=== PATIENT | female | born 1995 | race Caucasian/White ===

== ENCOUNTER 2018-01-18 23:42 | Emergency (ER) | payer SELFPAY ==
[2018-01-18 23:48] VITALS: BP 139/90; PULSE 89; RESP 18; TEMP 37; O2SAT 98
--- NOTE | 2018-01-18 23:58 | ED.GENADUL ---
Disposition Clinical Impression: Gastritis Disposition: HOME Condition: Good Instructions: Gastritis (ED) Additional Instructions: Please follow-up with primary care for recheck in the next 7-10 days time. Avoid fatty, fried, spicy or tomato sauce based foods. Avoid eating 3 hours prior to bedtime. He may benefit from sleeping with the head of the bed elevated 2-3 pillows. Take medication as prescribed. Return if you develop fever, worsening pain, or any other acute concerns. Prescriptions: Pantoprazole [Protonix] 40 mg PO DAILY #30 tabcr Medical Decision Making - Lab Data Laboratory Results - last 24 hr 01/19/18 01/19/18 01/19/18 00:09 00:09 00:20 WBC 11.33 H RBC 4.01 Hgb 12.9 Hct 36.9 MCV 92.0 MCH 32.2 MCHC 35.0 RDW 11.3 L Plt Count 322 MPV 10.8 Immature Gran % 0.2 Neutrophils % 58.2 Lymphocytes % 33.0 Monocytes % 5.6 Eosinophils % 2.7 Basophils % 0.3 Absolute Neutrophils 6.59 Absolute Lymphocytes 3.74 H Absolute Monocytes 0.63 Absolute Eosinophils 0.31 Absolute Basophils 0.03 Sodium 140 Potassium 3.5 Chloride 104 Carbon Dioxide 27.2 Anion Gap 8.8 BUN 13 Creatinine 0.68 Estimated GFR/1.73 m2 >= 60.00 Glucose 95 Calcium 8.4 L Magnesium 1.8 Total Bilirubin 0.2 AST 16 ALT 25 Alkaline Phosphatase 51 Total Protein 7.2 Albumin 3.7 Lipase 174 Urine Color Yellow Urine Clarity Clear Urine pH 7.0 Ur Specific [place] 1.020 Urine Protein Negative Urine Ketones Negative Urine Blood Trace-lysed H Urine Nitrite Negative Urine Bilirubin Negative Urine Urobilinogen 1.0 H Ur Leukocyte Esterase Negative Urine RBC 3-5 H Urine WBC 0-2 Ur Epithelial Cells Few Urine Crystals Negative Urine Bacteria Rare Urine Casts Negative Urine Mucus Negative Urine Other Rare transitional Ur Culture Indicated? No Urine Glucose Negative Results reviewed for labs ordered during visit: Yes - Medical Decision Making 22-year-old female presents with stuttering episodes of epigastric pain worsened tonight after eating hors d'oeuvres at a wedding. She is afebrile, well-appearing, minimally tender in epigastrium. Differential diagnosis would include gastritis, duodenal ulcer, esophagitis. Patient given GI cocktail, PPI, referred for laboratory testing. White blood cell count 11, hematocrit 36, platelets 322. Chemistries revealed normal electrolytes, unremarkable LFTs, normal lipase. Urinalysis essentially negative. Patient improved following PPI and GI cocktail. I do feel this is most consistent with gastritis. Discussed lifestyle changes with her and will place her on 30 days of PPI by prescription. She will follow-up with primary care for recheck. History of Present Illness - General Chief complaint: Chest/Rib Stated complaint: NAUSEA/CHEST TINGLING/SOB Time Seen by Provider: 01/18/18 23:45 Source: patient, family, RN notes reviewed Mode of arrival: ambulatory Limitations: no limitations - History of Present Illness Initial comments: Epigastric pain: 22-year-old female presents for the abrupt onset of burning epigastric pain that radiates up and down her chest. It began earlier this evening after eating hors d'oeuvres at a wedding. States that similar, intermittent episodes over weeks time that improved with Zantac. They primarily occur at night as well as in the morning. Tonight she felt flushed, sweaty, nauseated without associated emesis. It improved after sitting down. She states that she has not recently been ill and denies a fever, vaginal discharge or bleeding - Related Data Acetaminophen [Tylenol] 325 mg PO DIRECTED PRN 02/06/17 Ibuprofen 800 mg PO DIRECTED PRN 02/06/17 Norgestimate-Ethinyl Estradiol [Sprintec] 1 tab-cap PO DAILY 84 Days #3 pack 11/28/17 Pantoprazole [Protonix] 40 mg PO DAILY #30 tabcr 01/19/18 Allergies Allergy/AdvReac Type Severity Reaction Status Date / Time No Known Allergies Allergy Unverified 01/18/18 23:47 Review of Systems Other: 8 systems reviewed, otherwise negative Past Medical History - Past Medical History Medical history: asthma Surgical history: no surgical history - Social History Alcohol use: occasionally Drug use: none General Exam - General Limitations: no limitations General appearance: alert, in no apparent distress - Head Head exam: Present: atraumatic, normocephalic - ENT ENT exam: Present: normal exam - Neck Neck exam: Present: normal inspection, full ROM - Respiratory Respiratory exam: Present: normal lung sounds bilaterally. Absent: respiratory distress - Cardiovascular Cardiovascular Exam: Present: regular rate, normal rhythm - GI/Abdominal GI/Abdominal exam: Present: soft, tenderness, other (Epigastric tenderness without rebound or guarding). Absent: distended - Extremities Exam Extremities exam: Present: normal inspection, full ROM. Absent: pedal edema, calf tenderness - Neurological Exam Neurological exam: Present: alert, oriented X3 - Psychiatric Psychiatric exam: Present: normal affect, normal mood - Skin Skin exam: Present: warm, dry, intact Course Vital Signs - 24 hr 01/18/18 23:48 Temperature 37.0 C Pulse 89 Respiratory 18 Rate Blood Pressure 139/90 Pulse Oximetry 98
[2018-01-19] MEDS: Ondansetron 4 MG/2 ML VIAL IVP (00:13)
[2018-01-19] MEDS: Normal Saline 1,000 ML 1000 ML IV (00:15)
[2018-01-19] MEDS: Pantoprazole 40 MG VIAL IVP (00:15)
[2018-01-19 00:16] LABS: Abs Immature Grans 0.02 k/cumm (0.0-0.09); Absolute Basophil Count 0.03 k/cumm (0.0-0.2); Absolute Eosinophil Count 0.31 k/cumm (0.0-0.7); Absolute Lymphocyte Count 3.74 k/cumm (1.2-3.4); Absolute Monocyte Count 0.63 k/cumm (0.11-0.7); Basophils % 0.3; Eosinophils % 2.7; HCT 36.9 % (36.0-46.0); HGB 12.9 g/dL (12.0-15.5); Immature Grans % 0.2; Mean Corpuscular Hemoglobin 32.2 pg (27.0-33.0); Mean Platelet Volume 10.8 fL (8.0-11.0); Monocytes % 5.6; Neutrophils % 58.2; Platelet Count 322 x1000/uL (130-400); RBC 4.01 m/cumm (4.00-5.20); RBC Distribution Width 11.3 % (11.7-14.6); White Blood Cell Count 11.33 k/cumm (4.4-10.8)
[2018-01-19 00:19] LABS: Absolute Neutrophil Count 6.59 k/cumm (1.2-6.7)
[2018-01-19 00:31] LABS: Bilirubin Negative (Negative); Blood Trace-lysed (Negative); Clarity Clear; Glucose Negative (Negative); Ketones Negative (Negative); Leukocyte Esterase Negative (Negative); Nitrite Negative (Negative)
[2018-01-19 00:32] LABS: ALT 25 U/L (12-78); AST 16 U/L (15-37); Albumin 3.7 g/dL (3.4-5.0); Alkaline Phosphatase 51 U/L (46-116); Anion Gap 8.8 mmol/L (3-11); BUN 13 mg/dL (7-18); Bilirubin, Total 0.2 mg/dL (0.2-1.0); CO2 27.2 mmol/L (21.0-32.0); CREATININE 0.68 mg/dL (0.55-1.02); Calcium 8.4 mg/dL (8.5-10.1); Chloride 104 mmol/L (98-107); Glucose 95 mg/dL (70-100); Lipase 174 U/L (73-393); Magnesium 1.8 mg/dL (1.8-2.4); Potassium 3.5 mmol/L (3.5-5.1); Sodium 140 mmol/L (136-145); Total Protein 7.2 g/dL (6.4-8.2)
[2018-01-19 00:45] LABS: Bacteria Rare HPF (Negative); C & S Indicated? No; Casts Negative LPF (Negative); Crystals Negative HPF (Negative); Epithelial Cells Few HPF (Negative); Mucus Negative (Negative); Other Cells Rare Transitional (Negative); WBC 0-2 HPF (0-5)
--- NOTE | 2018-01-20 09:40 | PDOC.ERCMPRO ---
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 Referral faxed to [facility] this am.
--- NOTE | 2018-01-20 09:41 | CMPROGNOTE_ITS ---
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 Referral faxed to [facility] this am.
== END 2018-01-19 00:56 | disposition home or self-care (01) ==
PROVIDERS: Emergency Provider Emergency Medicine
DX: K52.9 Noninfective gastroenteritis and colitis, unspecified (principal)
CPT/HCPCS: 36415; 80053; 83690; 96361; 96374; 96375; 99284; 81003; 81015; 83735; 85025; J2405

== ENCOUNTER 2018-04-23 10:25 | Emergency (ER) | payer SELFPAY ==
[2018-04-23 10:40] VITALS: BP 120/75; PULSE 80; RESP 16; TEMP 36.6; O2SAT 99
--- NOTE | 2018-04-23 11:42 | W.ED.GENAD ---
Discharge Plan Disposition Patient Disposition: HOME Condition: Good Discharge Details Chief Complaint: RashLesion Clinical Impression: Allergic reaction, Urticaria Primary Care Provider: None,None ED Provider: Markos Cortes Home Meds and New Rx's Prescriptions: New ranitidine HCl [Zantac] 150 mg tablet 150 mg PO BID Qty: 20 RF: 0 prednisone 20 mg tablet 40 mg PO DAILY Qty: 14 RF: 0 No Action norgestimate-ethinyl estradiol [Sprintec (28)] 1 EACH tablet 1 tab-cap PO DAILY 84 Days Qty: 3 RF: 2 acetaminophen [Tylenol] 325 MG tablet 325 mg PO DIRECTED PRNRF: 0 ibuprofen 200 MG tablet 800 mg PO DIRECTED PRNRF: 0 pantoprazole 40 MG tablet,delayed release (DR/EC) 40 mg PO DAILY Qty: 30 RF: 0 Discharge Instructions Instructions: Urticaria (ED), General Allergic Reaction (ED) Referrals: [facility] Emergency Dept[facility] [Outside] - Return if symptoms worsen Discharge Data Discharge Date/Time-TO BE ENTERED AT DEPARTURE: 04/23/18 13:20 Medical Decision Making Will start IV and administer fluids, benadryl, zantac, and start prednisone for system allergic reaction. Patient improving with medications. Advised no more dayquil. Prescribed prednisone and zantac. Advised to return if symptoms worsen otherwise with pcp as previously planned. HPI General Date/Time Provider Initiated Documentation: 04/23/18 10:58. Limitations to Documentation: no limitations. Information obtained by: patient. History of Present Illness 22 year old F presents to the emergency department with the chief complaint of urticaria, described as mild, HPI Narrative: 22 y/o female here with concerns of allergic reaction. She developed hives last evening after coming home from work. She took Benadryl. Today they are less red but all over her body. Denies any scratchy throat, cp or SOB. She does have some mild nausea with it and the hives itch. She did take dayquil yesterday but has taken that many times before without adverse side affects. Related Data Home Medications Medication Instructions Recorded Confirmed acetaminophen [Tylenol] 325 mg PO DIRECTED PRN 02/06/17 04/23/18 ibuprofen 800 mg PO DIRECTED PRN 02/06/17 04/23/18 norgestimate-ethinyl estradiol 1 tab-cap PO DAILY 84 Days #3 pack 11/28/17 04/23/18 [Sprintec (28)] pantoprazole 40 mg PO DAILY #30 tabcr 01/19/18 04/23/18 prednisone 40 mg PO DAILY #14 tab 04/23/18 ranitidine HCl [Zantac] 150 mg PO BID #20 tab 04/23/18 Previous Rx's Medication Instructions Recorded norgestimate-ethinyl estradiol 1 tab-cap PO DAILY 84 Days #3 pack 11/28/17 [Sprintec (28)] pantoprazole 40 mg PO DAILY #30 tabcr 01/19/18 prednisone 40 mg PO DAILY #14 tab 04/23/18 ranitidine HCl [Zantac] 150 mg PO BID #20 tab 04/23/18 Allergies Allergy/AdvReac Type Severity Reaction Status Date / Time shell fish Allergy Intermediate Hives Uncoded 04/23/18 10:45 General Stated Complaint: RashLesion BRIAN: 3 Review of Systems Eyes Reports system reviewed and no additional complaints, except as docu ENT Reports system reviewed and no additional complaints, except as docu Cardiovascular Reports system reviewed and no additional complaints, except as docu Respiratory Reports system reviewed and no additional complaints, except as docu Gastrointestinal Reports system reviewed and no additional complaints, except as docu Integumentary/Breasts Reports pruritus (hives) [facility] Medical History Asthma Social History Smoking/Tobacco Use Status: Never Exam Const General: cooperative, healthy appearing, comfortable and no acute distress Orientation: alert and awake HENMT Head: normal to inspection and atraumatic Ears: hearing grossly normal bilaterally, external ears normal and TM's normal bilaterally General nose exam: external nose normal, nares normal and nasal mucous membranes and turbinates normal Face and sinus: normal facial exam Mouth: oral mucosae normal Teeth and gingiva: dentition normal Throat: posterior oropharynx normal Eyes General: appearance normal, both eyes and all related structures Neck Neck: normal visual inspection, full ROM and no lymphadenopathy Resp Effort & Inspection: normal respiratory effort Auscultation: clear to auscultation bilaterally Cardio Rate: regular rate Rhythm: regular rhythm GI Inspection: other (hives) Palpation: soft and nontender Auscultation: normal bowel sounds Back/Spine/Pelvis Back: No back tenderness Skin General skin exam: other (urticaria hives covering trunck, abdomen, and legs. ) Neuro General: alert, awake and oriented x3 Extrem General: full ROM Psych Appearance: grossly normal Speech and Movement: speech and movement normal Mood: congruent mood Attitude: cooperative Course Vital Signs Temperature 36.6 C 04/23/18 10:40 Pulse 80 04/23/18 10:40 Respiratory Rate 16 04/23/18 10:40 Blood Pressure 120/75 04/23/18 10:40 Pulse Oximetry 99 04/23/18 10:40 Temperature 36.6 C 04/23/18 10:40 Temperature Source Skin 04/23/18 10:40 Pulse 80 04/23/18 10:40 Respiratory Rate 16 04/23/18 10:40 Respiratory Effort 04/23/18 10:40 Blood Pressure 120/75 04/23/18 10:40 Blood Pressure Position Sitting 04/23/18 10:40 Pulse Oximetry 99 04/23/18 10:40 Oxygen Delivery Method Room Air 04/23/18 10:40 Oxygen Flow Rate 0 04/23/18 10:40 Pain Level 0 04/23/18 10:40
--- NOTE | 2018-04-23 11:46 | ED.GENADUL_ITS ---
Discharge Plan Disposition Patient Disposition: HOME Condition: Good Discharge Details Chief Complaint: RashLesion Clinical Impression: Allergic reaction, Urticaria Primary Care Provider: None,None ED Provider: Markos Cortes Home Meds and New Rx's Prescriptions: New ranitidine HCl [Zantac] 150 mg tablet 150 mg PO BID Qty: 20 RF: 0 prednisone 20 mg tablet 40 mg PO DAILY Qty: 14 RF: 0 No Action norgestimate-ethinyl estradiol [Sprintec (28)] 1 EACH tablet 1 tab-cap PO DAILY 84 Days Qty: 3 RF: 2 acetaminophen [Tylenol] 325 MG tablet 325 mg PO DIRECTED PRNRF: 0 ibuprofen 200 MG tablet 800 mg PO DIRECTED PRNRF: 0 pantoprazole 40 MG tablet,delayed release (DR/EC) 40 mg PO DAILY Qty: 30 RF: 0 Discharge Instructions Instructions: Urticaria (ED), General Allergic Reaction (ED) Referrals: [facility] Emergency Dept. [Outside] - Return if symptoms worsen Discharge Data Discharge Date/Time-TO BE ENTERED AT DEPARTURE: 04/23/18 13:20 Medical Decision Making Will start IV and administer fluids, benadryl, zantac, and start prednisone for system allergic reaction. Patient improving with medications. Advised no more dayquil. Prescribed prednisone and zantac. Advised to return if symptoms worsen otherwise with pcp as previously planned. HPI General Date/Time Provider Initiated Documentation: 04/23/18 10:58 . Limitations to Documentation: no limitations . Information obtained by: patient . History of Present Illness 22 year old F presents to the emergency department with the chief complaint of urticaria, described as mild, HPI Narrative: 22 y/o female here with concerns of allergic reaction. She developed hives last evening after coming home from work. She took Benadryl. Today they are less red but all over her body. Denies any scratchy throat, cp or SOB. She does have some mild nausea with it and the hives itch. She did take dayquil yesterday but has taken that many times before without adverse side affects. Related Data Home Medications Medication Instructions Recorded Confirmed acetaminophen [Tylenol] 325 mg PO DIRECTED PRN 02/06/17 04/23/18 ibuprofen 800 mg PO DIRECTED PRN 02/06/17 04/23/18 norgestimate-ethinyl estradiol 1 tab-cap PO DAILY 84 Days #3 pack 11/28/1704/23 [Sprintec (28)] pantoprazole 40 mg PO DAILY #30 tabcr 01/19/18 04/23/18 prednisone 40 mg PO DAILY #14 tab 04/23/18 ranitidine HCl [Zantac] 150 mg PO BID #20 tab 04/23/18 Previous Rx's Medication Instructions Recorded norgestimate-ethinyl estradiol 1 tab-cap PO DAILY 84 Days #3 pack 11/28/17 [Sprintec (28)] pantoprazole 40 mg PO DAILY #30 tabcr 01/19/18 prednisone 40 mg PO DAILY #14 tab 04/23/18 ranitidine HCl [Zantac] 150 mg PO BID #20 tab 04/23/18 Allergies Allergy/AdvReac Type Severity Reaction Status Date / Time shell fish Allergy Intermediate Hives Uncoded 04/23/18 10:45 General Stated Complaint: RashLesion BRIAN: 3 Review of Systems Eyes Reports system reviewed and no additional complaints, except as docu ENT Reports system reviewed and no additional complaints, except as docu Cardiovascular Reports system reviewed and no additional complaints, except as docu Respiratory Reports system reviewed and no additional complaints, except as docu Gastrointestinal Reports system reviewed and no additional complaints, except as docu Integumentary/Breasts Reports pruritus (hives) [facility] Medical History Asthma Social History Smoking/Tobacco Use Status: Never Exam Const General: cooperative, healthy appearing, comfortable and no acute distress Orientation: alert and awake HENMT Head: normal to inspection and atraumatic Ears: hearing grossly normal bilaterally, external ears normal and TM's normal bilaterally General nose exam: external nose normal, nares normal and nasal mucous membranes and turbinates normal Face and sinus: normal facial exam Mouth: oral mucosae normal Teeth and gingiva: dentition normal Throat: posterior oropharynx normal Eyes General: appearance normal, both eyes and all related structures Neck Neck: normal visual inspection, full ROM and no lymphadenopathy Resp Effort & Inspection: normal respiratory effort Auscultation: clear to auscultation bilaterally Cardio Rate: regular rate Rhythm: regular rhythm GI Inspection: other (hives) Palpation: soft and nontender Auscultation: normal bowel sounds Back/Spine/Pelvis Back: No back tenderness Skin General skin exam: other (urticaria hives covering trunck, abdomen, and legs. ) Neuro General: alert, awake and oriented x3 Extrem General: full ROM Psych Appearance: grossly normal Speech and Movement: speech and movement normal Mood: congruent mood Attitude: cooperative Course Vital Signs Temperature 36.6 C 04/23/18 10:40 Pulse 80 04/23/18 10:40 Respiratory Rate 16 04/23/18 10:40 Blood Pressure 120/75 04/23/18 10:40 Pulse Oximetry 99 04/23/18 10:40 Temperature 36.6 C 04/23/18 10:40 Temperature Source Skin 04/23/18 10:40 Pulse 80 04/23/18 10:40 Respiratory Rate 16 04/23/18 10:40 Respiratory Effort 04/23/18 10:40 Blood Pressure 120/75 04/23/18 10:40 Blood Pressure Position Sitting 04/23/18 10:40 Pulse Oximetry 99 04/23/18 10:40 Oxygen Delivery Method Room Air 04/23/18 10:40 Oxygen Flow Rate 0 04/23/18 10:40 Pain Level 0 04/23/18 10:40
[2018-04-23] MEDS: Normal Saline 1,000 ML 1000 ML IV (12:00)
[2018-04-23] MEDS: diphenhydrAMINE 50 MG/ML VIAL IVP (12:00)
[2018-04-23] MEDS: predniSONE 20 MG TAB 40 MG PO (12:05)
[2018-04-23 13:13] VITALS: BP 129/96; PULSE 63; RESP 18; TEMP 36.7; O2SAT 97
== END 2018-04-23 13:20 | disposition home or self-care (01) ==
PROVIDERS: Emergency Provider Nurse Practitioner Family
DX: L50.0 Allergic urticaria (principal)
CPT/HCPCS: 96361; 96374; 96375; 99284; J1200; J7512

== ENCOUNTER 2018-04-24 09:51 | Emergency (ER) | payer SELFPAY ==
[2018-04-24] VITALS (27 sets, daily range): BP systolic 117–134; BP diastolic 60–94; PULSE 73–94; RESP 16; TEMP 36.6–37; O2SAT 98–100
--- NOTE | 2018-04-24 09:58 | W.ED.GENAD ---
Discharge Plan Disposition Patient Disposition: HOME Condition: Good Discharge Details Chief Complaint: Allergic Clinical Impression: Allergic reaction, Urticaria Primary Care Provider: None,None ED Provider: Markos Cortes Home Meds and New Rx's Prescriptions: No Action norgestimate-ethinyl estradiol [Sprintec (28)] 1 EACH tablet 1 tab-cap PO DAILY 84 Days Qty: 3 RF: 2 ranitidine HCl [Zantac] 150 mg tablet 150 mg PO BID Qty: 20 RF: 0 prednisone 20 mg tablet 40 mg PO DAILY Qty: 14 RF: 0 acetaminophen [Tylenol] 325 MG tablet 325 mg PO DIRECTED PRNRF: 0 ibuprofen 200 MG tablet 800 mg PO DIRECTED PRNRF: 0 pantoprazole 40 MG tablet,delayed release (DR/EC) 40 mg PO DAILY Qty: 30 RF: 0 Discharge Instructions Instructions: Urticaria (ED), General Allergic Reaction (ED) Referrals: [facility] Emergency Dept. [Outside] - Return if symptoms worsen Medical Decision Making Plan to initiate IV and administer fluids. Will hold on Benadryl she had it [employer]. Will give Prednisone and Zantac and monitor for a few hours. Pt reevaluated after zantac and prednisone. Hives not much improved. She tells me she can swallow but feels something in the throat. We will give .3m of Epi and another dose of Benadryl. Patient much improved after Benadryl and Epi. Hives on face are completely gone and she has normal color to her face. She feels well enough to go home. I advised to return if symptoms worsen. Otherwise with pcp. She will feill prescription for Prednsione tomorrow. I advised to complete Prednisone course and take Benadryl another two days and Zantac twice a day while on Prednisone. HPI General Date/Time Provider Initiated Documentation: 04/24/18 09:57. Limitations to Documentation: no limitations. Information obtained by: patient. History of Present Illness 22 year old F presents to the emergency department with the chief complaint of Urticaria, HPI Narrative: 22 y/o female here accompanied by mom with c/o Hives. She was evaluated and treated here yesterday by myself for same complaint. Her hives lessened significantly after IV dose of Benadryl and Zantac and PO prednisone started. She tried to fill her prescription of Prednisone but the pharmacies are closed for Thanksgiving Holiday. She did take Benadryl and Zantac [employer]IN[employer] but the hives seem to recr and now involves her face. She denies any sob, scratchy throat or increased heart burn which she has chronically. Related Data Home Medications Medication Instructions Recorded Confirmed acetaminophen [Tylenol] 325 mg PO DIRECTED PRN 02/06/17 04/24/18 ibuprofen 800 mg PO DIRECTED PRN 02/06/17 04/24/18 norgestimate-ethinyl estradiol 1 tab-cap PO DAILY 84 Days #3 pack 11/28/17 04/24/18 [Sprintec (28)] pantoprazole 40 mg PO DAILY #30 tabcr 01/19/18 04/24/18 prednisone 40 mg PO DAILY #14 tab 04/23/18 04/24/18 ranitidine HCl [Zantac] 150 mg PO BID #20 tab 04/23/18 04/24/18 Previous Rx's Medication Instructions Recorded norgestimate-ethinyl estradiol 1 tab-cap PO DAILY 84 Days #3 pack 11/28/17 [Sprintec (28)] pantoprazole 40 mg PO DAILY #30 tabcr 01/19/18 prednisone 40 mg PO DAILY #14 tab 04/23/18 ranitidine HCl [Zantac] 150 mg PO BID #20 tab 04/23/18 Allergies Allergy/AdvReac Type Severity Reaction Status Date / Time shell fish Allergy Intermediate Hives Uncoded 04/24/18 10:08 General BRIAN: 3 Review of Systems Eyes Reports system reviewed and no additional complaints, except as docu ENT Reports system reviewed and no additional complaints, except as docu, Denies lip swelling, Denies throat swelling and Denies tongue swelling Cardiovascular Reports system reviewed and no additional complaints, except as docu Respiratory Reports system reviewed and no additional complaints, except as docu and Denies wheezing Gastrointestinal Reports system reviewed and no additional complaints, except as docu Allergic/Immunologic Reports urticaria, Denies lip swelling, Denies seasonal rhinorrhea, Denies throat swelling, Denies tongue swelling and Denies wheezing PFSH Medical History Asthma Social History Smoking/Tobacco Use Status: Never Exam Const General: cooperative, healthy appearing, comfortable and no acute distress Nutritional Appearance: average body habitus Orientation: alert, awake and oriented x3 HENMT Head: normal to inspection and atraumatic Ears: hearing grossly normal bilaterally, external ears normal and TM's normal bilaterally General nose exam: external nose normal and nares normal Face and sinus: other (hives on bilateral cheeks) Mouth: oral mucosae normal Teeth and gingiva: dentition normal Throat: posterior oropharynx normal Eyes General: appearance normal, both eyes and all related structures Neck Neck: normal visual inspection, full ROM and no lymphadenopathy Resp Effort & Inspection: normal respiratory effort Auscultation: clear to auscultation bilaterally Cardio Rate: regular rate Rhythm: regular rhythm Heart Sounds: S1 normal and S2 normal Skin General skin exam: other (urticaria face, chest, abdomen, and legs) Neuro General: alert, awake and oriented x3 Extrem General: full ROM and normal capillary refill Psych Appearance: grossly normal and well kempt Mental Status: mental status grossly normal Speech and Movement: speech and movement normal Mood: congruent mood Affect: normal affect Attitude: cooperative Thought Process: normal Thought Content: normal Insight: insight good Judgment: judgment good
[2018-04-24] MEDS: Normal Saline 1,000 ML 1000 ML IV ×2 (10:00→12:05)
--- NOTE | 2018-04-24 10:05 | ED.GENADUL_ITS ---
Discharge Plan Disposition Patient Disposition: HOME Condition: Good Discharge Details Chief Complaint: Allergic Clinical Impression: Allergic reaction, Urticaria Primary Care Provider: None,None ED Provider: Markos Cortes Home Meds and New Rx's Prescriptions: No Action norgestimate-ethinyl estradiol [Sprintec (28)] 1 EACH tablet 1 tab-cap PO DAILY 84 Days Qty: 3 RF: 2 ranitidine HCl [Zantac] 150 mg tablet 150 mg PO BID Qty: 20 RF: 0 prednisone 20 mg tablet 40 mg PO DAILY Qty: 14 RF: 0 acetaminophen [Tylenol] 325 MG tablet 325 mg PO DIRECTED PRNRF: 0 ibuprofen 200 MG tablet 800 mg PO DIRECTED PRNRF: 0 pantoprazole 40 MG tablet,delayed release (DR/EC) 40 mg PO DAILY Qty: 30 RF: 0 Discharge Instructions Instructions: Urticaria (ED), General Allergic Reaction (ED) Referrals: [facility] Emergency Dept. [Outside] - Return if symptoms worsen Medical Decision Making Plan to initiate IV and administer fluids. 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 Will give Prednisone and Zantac and monitor for a few hours. Pt reevaluated after zantac and prednisone. Hives not much improved. She tells me she can swallow but feels something in the throat. We will give .3m of Epi and another dose of Benadryl. Patient much improved after Benadryl and Epi. Hives on face are completely gone and she has normal color to her face. She feels well enough to go home. I advised to return if symptoms worsen. Otherwise with pcp. She will feill prescription for Prednsione tomorrow. I advised to complete Prednisone course and take Benadryl another two days and Zantac twice a day while on Prednisone. HPI General Date/Time Provider Initiated Documentation: 04/24/18 09:57 . Limitations to Documentation: no limitations . Information obtained by: patient . History of Present Illness 22 year old F presents to the emergency department with the chief complaint of Urticaria, HPI Narrative: 22 y/o female here accompanied by mom with c/o Hives. She was evaluated and treated here yesterday by myself for same complaint. Her hives lessened significantly after IV dose of Benadryl and Zantac and PO prednisone started. She tried to fill her prescription of Prednisone but the pharmacies are closed for Thanksgiving Holiday. 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 She denies any sob, scratchy throat or increased heart burn which she has chronically. Related Data Home Medications Medication Instructions Recorded Confirmed acetaminophen [Tylenol] 325 mg PO DIRECTED PRN 02/06/17 04/24/18 ibuprofen 800 mg PO DIRECTED PRN 02/06/17 04/24/18 norgestimate-ethinyl estradiol 1 tab-cap PO DAILY 84 Days #3 pack 11/28/1704/24 [Sprintec (28)] pantoprazole 40 mg PO DAILY #30 tabcr 01/19/18 04/24/18 prednisone 40 mg PO DAILY #14 tab 04/23/18 04/24/18 ranitidine HCl [Zantac] 150 mg PO BID #20 tab 04/23/18 04/24/18 Previous Rx's Medication Instructions Recorded norgestimate-ethinyl estradiol 1 tab-cap PO DAILY 84 Days #3 pack 11/28/17 [Sprintec (28)] pantoprazole 40 mg PO DAILY #30 tabcr 01/19/18 prednisone 40 mg PO DAILY #14 tab 04/23/18 ranitidine HCl [Zantac] 150 mg PO BID #20 tab 04/23/18 Allergies Allergy/AdvReac Type Severity Reaction Status Date / Time shell fish Allergy Intermediate Hives Uncoded 04/24/18 10:08 General BRIAN: 3 Review of Systems Eyes Reports system reviewed and no additional complaints, except as docu ENT Reports system reviewed and no additional complaints, except as docu, Denies lip swelling, Denies throat swelling and Denies tongue swelling Cardiovascular Reports system reviewed and no additional complaints, except as docu Respiratory Reports system reviewed and no additional complaints, except as docu and Denies wheezing Gastrointestinal Reports system reviewed and no additional complaints, except as docu Allergic/Immunologic Reports urticaria, Denies lip swelling, Denies seasonal rhinorrhea, Denies throat swelling, Denies tongue swelling and Denies wheezing PFSH Medical History Asthma Social History Smoking/Tobacco Use Status: Never Exam Const General: cooperative, healthy appearing, comfortable and no acute distress Nutritional Appearance: average body habitus Orientation: alert, awake and oriented x3 HENMT Head: normal to inspection and atraumatic Ears: hearing grossly normal bilaterally, external ears normal and TM's normal bilaterally General nose exam: external nose normal and nares normal Face and sinus: other (hives on bilateral cheeks) Mouth: oral mucosae normal Teeth and gingiva: dentition normal Throat: posterior oropharynx normal Eyes General: appearance normal, both eyes and all related structures Neck Neck: normal visual inspection, full ROM and no lymphadenopathy Resp Effort & Inspection: normal respiratory effort Auscultation: clear to auscultation bilaterally Cardio Rate: regular rate Rhythm: regular rhythm Heart Sounds: S1 normal and S2 normal Skin General skin exam: other (urticaria face, chest, abdomen, and legs) Neuro General: alert, awake and oriented x3 Extrem General: full ROM and normal capillary refill Psych Appearance: grossly normal and well kempt Mental Status: mental status grossly normal Speech and Movement: speech and movement normal Mood: congruent mood Affect: normal affect Attitude: cooperative Thought Process: normal Thought Content: normal Insight: insight good Judgment: judgment good
[2018-04-24] MEDS: predniSONE 20 MG TAB 40 MG PO (10:11)
[2018-04-24] MEDS: diphenhydrAMINE 50 MG/ML VIAL IVP (12:05)
== END 2018-04-24 14:32 | disposition home or self-care (01) ==
PROVIDERS: Emergency Provider Nurse Practitioner Family
DX: L50.0 Allergic urticaria (principal)
CPT/HCPCS: 96361; 96365; 96372; 96375; 99284; J0171; J1200; J7512

== ENCOUNTER 2018-04-28 09:12 | Emergency (ER) | payer SELFPAY ==
[2018-04-28 09:20] VITALS: BP 134/87; PULSE 90; RESP 16; TEMP 36.6; O2SAT 98
--- NOTE | 2018-04-28 10:05 | W.ED.GENAD ---
Discharge Plan Disposition Patient Disposition: HOME Condition: Good Discharge Details Chief Complaint: RashLesion Clinical Impression: Urticaria Primary Care Provider: None,None ED Provider: Markos Cortes Home Meds and New Rx's Prescriptions: New loratadine 10 mg tablet 10 mg PO DAILY Qty: 30 RF: 0 prednisone 10 mg tablets,dose pack 10 mg PO DAILY Qty: 48 RF: 0 No Action norgestimate-ethinyl estradiol [Sprintec (28)] 1 EACH tablet 1 tab-cap PO DAILY 84 Days Qty: 3 RF: 2 ranitidine HCl [Zantac] 150 mg tablet 150 mg PO BID Qty: 20 RF: 0 prednisone 20 mg tablet 40 mg PO DAILY Qty: 14 RF: 0 acetaminophen [Tylenol] 325 MG tablet 325 mg PO DIRECTED PRNRF: 0 ibuprofen 200 MG tablet 800 mg PO DIRECTED PRNRF: 0 Discharge Instructions Instructions: Urticaria (ED) Referrals: Tristan Rodriguez DO [OSTEOPATHIC DOCTOR] - 2 weeks (For urticaria ) Medical Decision Making She expresses her frustration. She has washed her clothing and bedding. I explained that I believe it is caused by something she is eating because of the global distribution of the urticaria. However contact can not be completely excluded. We discussed cold weather, animals, and other types of causes. She has never been allergic to her dog and has lived here all her life and never had this problem. I prescribed Claritin instead of Benadryl, and added additional tapering dose of prednisone. Advised to continue Zantac. She does not have PCP, we will put her on the list for PCP establishment. Also we referred to Dr. Rodriguez in [place] for allergy referral. Hopefully he could see her with in the next two weeks. I explained this may take awhile for the hives to completely resolve. HPI General Mode of arrival: ambulatory. Date/Time Provider Initiated Documentation: 04/28/18 09:29. Limitations to Documentation: no limitations. Information obtained by: patient. History of Present Illness 22 year old F presents to the emergency department with the chief complaint of urticaria, HPI Narrative: 22 y/o female returns for the third time for urticaria. I saw her here in the ED five days ago for acute onset of urticaria. Started on Prednisone, Zantac, and Benadryl. She returned the next day and we continued same medications and gave one does of EPi. Discharged with same medications. She returns today with worsening of hives to the lower extremities. Denies any cp, difficulty swallowing, or sob. Related Data Home Medications Medication Instructions Recorded Confirmed acetaminophen [Tylenol] 325 mg PO DIRECTED PRN 02/06/17 04/28/18 ibuprofen 800 mg PO DIRECTED PRN 02/06/17 04/28/18 norgestimate-ethinyl estradiol 1 tab-cap PO DAILY 84 Days #3 pack 11/28/17 04/28/18 [Sprintec (28)] prednisone 40 mg PO DAILY #14 tab 04/23/18 04/28/18 ranitidine HCl [Zantac] 150 mg PO BID #20 tab 04/23/18 04/28/18 loratadine 10 mg PO DAILY #30 tab 04/28/18 prednisone 10 mg PO DAILY #48 dose pk 04/28/18 Previous Rx's Medication Instructions Recorded norgestimate-ethinyl estradiol 1 tab-cap PO DAILY 84 Days #3 pack 11/28/17 [Sprintec (28)] prednisone 40 mg PO DAILY #14 tab 04/23/18 ranitidine HCl [Zantac] 150 mg PO BID #20 tab 04/23/18 loratadine 10 mg PO DAILY #30 tab 04/28/18 prednisone 10 mg PO DAILY #48 dose pk 04/28/18 Allergies Allergy/AdvReac Type Severity Reaction Status Date / Time shell fish Allergy Intermediate Hives Uncoded 04/28/18 09:25 General Stated Complaint: RashLesion BRIAN: 4 Review of Systems Eyes Reports system reviewed and no additional complaints, except as docu ENT Reports system reviewed and no additional complaints, except as [facility] Cardiovascular Reports system reviewed and no additional complaints, except as [facility] Respiratory Reports system reviewed and no additional complaints, except as docu Allergic/Immunologic Reports urticaria PFSH Medical History Asthma Social History Smoking/Tobacco Use Status: Never Exam Const General: cooperative, healthy appearing, comfortable and no acute distress Orientation: alert, awake and oriented x3 HENMT Head: normal to inspection and atraumatic Ears: hearing grossly normal bilaterally, external ears normal and TM's normal bilaterally General nose exam: external nose normal and nares normal Mouth: oral mucosae normal, lip normal, tongue normal, oropharynx normal and moist mucous membranes Teeth and gingiva: dentition normal Throat: posterior oropharynx normal Eyes General: appearance normal, both eyes and all related structures Neck Neck: normal visual inspection, full ROM and no lymphadenopathy Resp Effort & Inspection: normal respiratory effort Auscultation: clear to auscultation bilaterally Cardio Rate: regular rate Rhythm: regular rhythm Skin Rashes: other (urticaria noted to lower extremeties and less so to upper extremeties. ) Neuro General: alert, awake and oriented x3 Cranial Nerves: CN's II-XI intact bilaterally Extrem General: full ROM Psych Appearance: grossly normal Speech and Movement: speech and movement normal Mood: congruent mood Affect: normal affect Attitude: cooperative Thought Process: normal Thought Content: normal Insight: insight good Judgment: judgment good Course Vital Signs Temperature 36.6 C 04/28/18 09:20 Pulse 90 04/28/18 09:20 Respiratory Rate 16 04/28/18 09:20 Blood Pressure 134/87 04/28/18 09:20 Pulse Oximetry 98 04/28/18 09:20 Temperature 36.6 C 04/28/18 09:20 Temperature Source Skin 04/28/18 09:20 Pulse 90 04/28/18 09:20 Respiratory Rate 16 04/28/18 09:20 Respiratory Effort Non-Labored 04/28/18 09:20 Blood Pressure 134/87 04/28/18 09:20 Blood Pressure Position Sitting 04/28/18 09:20 Pulse Oximetry 98 04/28/18 09:20 Oxygen Delivery Method Room Air 04/28/18 09:20 Oxygen Flow Rate 0 04/28/18 09:20 Pain Level 2 04/28/18 09:20
--- NOTE | 2018-04-28 10:22 | ED.GENADUL_ITS ---
Discharge Plan Disposition Patient Disposition: HOME Condition: Good Discharge Details Chief Complaint: RashLesion Clinical Impression: Urticaria Primary Care Provider: None,None ED Provider: Markos Cortes Home Meds and New Rx's Prescriptions: New loratadine 10 mg tablet 10 mg PO DAILY Qty: 30 RF: 0 prednisone 10 mg tablets,dose pack 10 mg PO DAILY Qty: 48 RF: 0 No Action norgestimate-ethinyl estradiol [Sprintec (28)] 1 EACH tablet 1 tab-cap PO DAILY 84 Days Qty: 3 RF: 2 ranitidine HCl [Zantac] 150 mg tablet 150 mg PO BID Qty: 20 RF: 0 prednisone 20 mg tablet 40 mg PO DAILY Qty: 14 RF: 0 acetaminophen [Tylenol] 325 MG tablet 325 mg PO DIRECTED PRNRF: 0 ibuprofen 200 MG tablet 800 mg PO DIRECTED PRNRF: 0 Discharge Instructions Instructions: Urticaria (ED) Referrals: Tristan Rodriguez DO [OSTEOPATHIC DOCTOR] - 2 weeks (For urticaria ) Medical Decision Making She expresses her frustration. She has washed her clothing and bedding. I explained that I believe it is caused by something she is eating because of the global distribution of the urticaria. However contact can not be completely excluded. We discussed cold weather, animals, and other types of causes. She has never been allergic to her dog and has lived here all her life and never had this problem. I prescribed Claritin instead of Benadryl, and added additional tapering dose of prednisone. Advised to continue Zantac. She does not have PCP, we will put her on the list for PCP establishment. Also we referred to Dr. Rodriguez in [place] for allergy referral. Hopefully he could see her with in the next two weeks. I explained this may take awhile for the hives to completely resolve. HPI General Mode of arrival: ambulatory . Date/Time Provider Initiated Documentation: 04/28/18 09:29 . Limitations to Documentation: no limitations . Information obtained by: patient . History of Present Illness 22 year old F presents to the emergency department with the chief complaint of urticaria, HPI Narrative: 22 y/o female returns for the third time for urticaria. I saw her here in the ED five days ago for acute onset of urticaria. Started on Prednisone, Zantac, and Benadryl. She returned the next day and we continued same medications and gave one does of EPi. Discharged with same medications. She returns today with worsening of hives to the lower extremities. Denies any cp, difficulty swallowing, or sob. Related Data Home Medications Medication Instructions Recorded Confirmed acetaminophen [Tylenol] 325 mg PO DIRECTED PRN 02/06/17 04/28/18 ibuprofen 800 mg PO DIRECTED PRN 02/06/17 04/28/18 norgestimate-ethinyl estradiol 1 tab-cap PO DAILY 84 Days #3 pack 11/28/1704/28 [Sprintec (28)] prednisone 40 mg PO DAILY #14 tab 04/23/18 04/28/18 ranitidine HCl [Zantac] 150 mg PO BID #20 tab 04/23/18 04/28/18 loratadine 10 mg PO DAILY #30 tab 04/28/18 prednisone 10 mg PO DAILY #48 dose pk 04/28/18 Previous Rx's Medication Instructions Recorded norgestimate-ethinyl estradiol 1 tab-cap PO DAILY 84 Days #3 pack 11/28/17 [Sprintec (28)] prednisone 40 mg PO DAILY #14 tab 04/23/18 ranitidine HCl [Zantac] 150 mg PO BID #20 tab 04/23/18 loratadine 10 mg PO DAILY #30 tab 04/28/18 prednisone 10 mg PO DAILY #48 dose pk 04/28/18 Allergies Allergy/AdvReac Type Severity Reaction Status Date / Time shell fish Allergy Intermediate Hives Uncoded 04/28/18 09:25 General Stated Complaint: RashLesion BRIAN: 4 Review of Systems Eyes Reports system reviewed and no additional complaints, except as docu ENT Reports system reviewed and no additional complaints, except as [facility] Cardiovascular Reports system reviewed and no additional complaints, except as [facility] Respiratory Reports system reviewed and no additional complaints, except as docu Allergic/Immunologic Reports urticaria PFSH Medical History Asthma Social History Smoking/Tobacco Use Status: Never Exam Const General: cooperative, healthy appearing, comfortable and no acute distress Orientation: alert, awake and oriented x3 HENMT Head: normal to inspection and atraumatic Ears: hearing grossly normal bilaterally, external ears normal and TM's normal bilaterally General nose exam: external nose normal and nares normal Mouth: oral mucosae normal, lip normal, tongue normal, oropharynx normal and moist mucous membranes Teeth and gingiva: dentition normal Throat: posterior oropharynx normal Eyes General: appearance normal, both eyes and all related structures Neck Neck: normal visual inspection, full ROM and no lymphadenopathy Resp Effort & Inspection: normal respiratory effort Auscultation: clear to auscultation bilaterally Cardio Rate: regular rate Rhythm: regular rhythm Skin Rashes: other (urticaria noted to lower extremeties and less so to upper extremeties. ) Neuro General: alert, awake and oriented x3 Cranial Nerves: CN's II-XI intact bilaterally Extrem General: full ROM Psych Appearance: grossly normal Speech and Movement: speech and movement normal Mood: congruent mood Affect: normal affect Attitude: cooperative Thought Process: normal Thought Content: normal Insight: insight good Judgment: judgment good Course Vital Signs Temperature 36.6 C 04/28/18 09:20 Pulse 90 04/28/18 09:20 Respiratory Rate 16 04/28/18 09:20 Blood Pressure 134/87 04/28/18 09:20 Pulse Oximetry 98 04/28/18 09:20 Temperature 36.6 C 04/28/18 09:20 Temperature Source Skin 04/28/18 09:20 Pulse 90 04/28/18 09:20 Respiratory Rate 16 04/28/18 09:20 Respiratory Effort Non-Labored 04/28/18 09:20 Blood Pressure 134/87 04/28/18 09:20 Blood Pressure Position Sitting 04/28/18 09:20 Pulse Oximetry 98 04/28/18 09:20 Oxygen Delivery Method Room Air 04/28/18 09:20 Oxygen Flow Rate 0 04/28/18 09:20 Pain Level 2 04/28/18 09:20
== END 2018-04-28 10:20 | disposition home or self-care (01) ==
PROVIDERS: Emergency Provider Nurse Practitioner Family
DX: L50.9 Urticaria, unspecified (principal)
CPT/HCPCS: 99283

== ENCOUNTER 2018-07-12 00:33 | Emergency (ER) | payer MEDICAID, SELFPAY ==
[2018-07-12 00:37] VITALS: BP 132/70; PULSE 76; RESP 18; TEMP 37.2; O2SAT 99
--- NOTE | 2018-07-12 01:23 | ED.GENADUL_ITS ---
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 Please follow-up with OB next week. Return to ED over the weekend if increasing pelvic pain, heavy bleeding, lightheadedness, other concerns. Referrals: [facility] [Provider Group] Medical Decision Making Patient here with vaginal bleeding. She is 8 weeks . She had OB ultrasound done confirming an IUP on 07/10. Bedside ultrasound tonight done by me does show heartbeat. It is approximately 170. Pelvic exam performed with female nurse present. There is old blood but no active bleeding. The os is closed. CBC, beta quant, Rh factor sent. For the lab patient blood type is O+. She does not need RhoGam. Hemoglobin is fine. Beta quant done for baseline in case of further problems. Patient safe for discharge home. 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 Return to ED over the weekend if increasing pain, heavy bleeding, other concerns. Medical Records Medical records reviewed: Yes I reviewed the patient's medical records. Lab Data Lab results reviewed: Yes I reviewed the patient's lab results. HPI General Mode of arrival: ambulatory . Date/Time Provider Initiated Documentation: 07/12/18 01:01 . Limitations to Documentation: no limitations . Information obtained by: patient . HPI Narrative: Patient here with vaginal bleeding. Patient is 8 weeks . She actually had an ultrasound done on the seventh. She is . She has had some cramping but no bleeding. Tonight about an hour prior to coming in noticed bleeding. She is actually not having pain. She does not describe a lot of blood. There were no clots. Other than having a little cold with some congestion and cough she has felt well. She was concerned about the bleeding and came in for evaluation. 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 BRIAN: 3 Review of Systems Constitutional Denies chills, Denies fever(s), Denies headache(s) and Denies weakness Eyes Denies eye discharge ENT Denies otalgia, Denies facial pain, Denies headache(s), Reports nasal congestion, Denies neck pain and Denies sore throat Cardiovascular Denies chest pain, Denies syncope, Denies rapid heart rate, Denies edema and Denies dyspnea Respiratory Reports cough (mild) and Denies dyspnea Gastrointestinal Denies abdominal pain, Denies diarrhea, Denies nausea and Denies vomiting Genitourinary Reports abnormal vaginal bleeding, Denies dysuria, Denies pelvic pain and Denies flank pain Musculoskeletal Denies back pain, Denies neck pain and Denies numbness Integumentary/Breasts Denies rash Neurologic Denies syncope, Denies headache(s), Denies focal weakness, Denies numbness and Denies weakness [facility] Medical History Asthma Social History Smoking and Tabacco status: Never Exam Const General: cooperative, comfortable and no acute distress Orientation: alert and oriented x3 [facility] Head: normocephalic and atraumatic Mouth: moist mucous membranes Neck Neck: normal visual inspection, trachea midline and supple Resp Effort & Inspection: normal respiratory effort GI Palpation: soft and nontender External Female Exam: external appearance normal Speculum Exam - Vagina: normal appearance of the vagina and vaginal bleeding (minimal old dark blood) Speculum Exam - Cervix: normal appearance of the cervix, closed cervix and nontender Bimanual Exam- Vagina & Uterus: No cervical tenderness and other (confirmed closed OS) OB/External & Speculum: vaginal bleeding (minimal old dark blood) Other: exam done with female nurse present Skin General skin exam: no rashes or lesions noted Neuro General: alert, oriented x3, gait normal, no focal motor deficits and CN's II-XI intact bilaterally Extrem General: normal to inspection and no clubbing, cyanosis or edema Course Vital Signs Temperature 99.0 F 07/12/18 00:37 Pulse 76 07/12/18 00:37 Respiratory Rate 18 07/12/18 00:37 Blood Pressure 132/70 07/12/18 00:37 Pulse Oximetry 99 07/12/18 00:37 Temperature 99.0 F 07/12/18 00:37 Temperature Source Temporal Artery Scan 07/12/18 00:37 Pulse 76 07/12/18 00:37 Respiratory Rate 18 07/12/18 00:37 Respiratory Effort 07/12/18 00:37 Blood Pressure 132/70 07/12/18 00:37 Blood Pressure Position Sitting 07/12/18 00:37 Pulse Oximetry 99 07/12/18 00:37 Oxygen Delivery Method Room Air 07/12/18 00:37 Oxygen Flow Rate 0 07/12/18 00:37 Pain Level 0 07/12/18 00:37
[2018-07-12 01:43] LABS: HCT 35.5 % (36.0-46.0); HGB 12.5 g/dL (12.0-15.5); Mean Corp. HGB Concentration 35.2 g/dL (32.0-36.0); Mean Corpuscular Hemoglobin 32.7 pg (27.0-33.0); Mean Corpuscular Volume 92.9 fL (80-95); Mean Platelet Volume 10.4 fL (8.0-11.0); Platelet Count 290 x1000/uL (130-400); RBC 3.82 m/cumm (4.00-5.20); RBC Distribution Width 11.7 % (11.7-14.6); White Blood Cell Count 12.39 k/cumm (4.4-10.8)
[2018-07-12 03:15] VITALS: BP 128/68; PULSE 72; RESP 18; O2SAT 100
== END 2018-07-12 03:10 | disposition home or self-care (01) ==
PROVIDERS: Emergency Provider Emergency Medicine
DX: O20.0 Threatened abortion (principal); Z3A.08 8 weeks gestation of pregnancy
CPT/HCPCS: 36415; 85027; 86901; 99284; 84702

== ENCOUNTER 2018-07-21 10:25 | Outpatient (CLI) | payer MEDICAID, SELFPAY ==
[2018-07-21 12:51] LABS: Abs Immature Grans 0.03 k/cumm (0.0-0.09); Absolute Basophil Count 0.02 k/cumm (0.0-0.2); Absolute Eosinophil Count 0.12 k/cumm (0.0-0.7); Absolute Lymphocyte Count 2.31 k/cumm (1.2-3.4); Absolute Neutrophil Count 7.44 k/cumm (1.2-6.7); Basophils % 0.2; Eosinophils % 1.2; HCT 37.7 % (36.0-46.0); HGB 13.1 g/dL (12.0-15.5); Immature Grans % 0.3; Lymphocytes % 22.2; Mean Corp. HGB Concentration 34.7 g/dL (32.0-36.0); Mean Corpuscular Hemoglobin 32.3 pg (27.0-33.0); Mean Corpuscular Volume 92.9 fL (80-95); Mean Platelet Volume 11.1 fL (8.0-11.0); Monocytes % 4.8; Neutrophils % 71.3; Platelet Count 300 x1000/uL (130-400); RBC 4.06 m/cumm (4.00-5.20); RBC Distribution Width 11.9 % (11.7-14.6); White Blood Cell Count 10.42 k/cumm (4.4-10.8)
[2018-07-22 09:05] LABS: Hepatitis C Ab w Rflx HCV PCR Negative (NEGAT)
[2018-07-22 09:23] LABS: Syphilis Serology (RPR) Negative (Negative); Varicella IgG Antibody Positive
[2018-07-22 09:27] LABS: Rubella IgG Ab (UVM) Positive
[2018-07-22 11:30] LABS: Hepatitis B Surface Ag Negative (NEGAT)
[2018-07-22 11:33] LABS: HIV-1/2 Ag & Ab Screen Negative (NEGAT)
== END 2018-07-21 10:45 ==
PROVIDERS: Visit Provider Advanced Practice Midwife
DX: Z34.91 Encounter for supervision of normal pregnancy, unspecified, first trimester (principal); Z11.59 Encounter for screening for other viral diseases; Z01.84 Encounter for antibody response examination; Z11.4 Encounter for screening for human immunodeficiency virus [HIV]
CPT/HCPCS: 36415; 80055; 86787; 86803; 86850; 86900; 86901; 87340; 87389; 84443; 86592; 86762

== ENCOUNTER 2018-07-21 11:00 | Outpatient (REF) | payer MEDICAID, SELFPAY ==
--- NOTE | 2018-07-21 10:10 | PAPFT_PTH ---
PATIENT: Connor Flores LOC: [facility] U#:[id number] AGE/SX: 22/F ROOM: RE07/21/[address]: Wero Chavez RN : 1995 BED: DIS: 07/21/2018 SPEC #: [id number] RECD: 07/21/18 12:52 STATUS: PAUL REQ #: [id number] YESSICA: 07/21/18 10:[address]: Wero Chavez DEPT: [facility] Cytology RECD BY: Valeria Monge ENTERED: 07/21/18 12:52 SP TYPE: PAPFT OT DR: None Tissues: 1 - CX/ENDOCX FOR PAP SMEARS Procedures: PAP THIN PREP/[facility] Screening Comments: [id number] (CHLAMYDIA/GC)
[2018-07-21 13:22] LABS: *AMPHETAMINES SCREEN URINE Negative (Negative); *BARBITURATES SCREEN URINE Negative (Negative); *BENZODIAZEPINES SCREEN URINE Negative (Negative); Cannabinoids THC Negative (Negative); Cocaine Screen,Urine Negative (Negative); METHADONE URINE SCREEN Negative (Negative); OPIATES URINE SCREEN Negative (Negative)
[2018-07-21 13:25] LABS: Tricyclic Antidepressants Negative (Negative)
[2018-07-22 14:43] LABS: Chlamydia Result Negative; GC Result Negative; Specimen Description SEE COMMENTS
[2018-07-24 11:01] LABS: Buprenorphine Negative; Norbuprenorphine Negative
== END 2018-07-21 11:20 ==
LOC: LBN 11:00
PROVIDERS: Visit Provider Advanced Practice Midwife
DX: Z34.91 Encounter for supervision of normal pregnancy, unspecified, first trimester (principal); Z12.4 Encounter for screening for malignant neoplasm of cervix; Z11.3 Encounter for screening for infections with a predominantly sexual mode of transmission
CPT/HCPCS: 80307; 87491; 87591; 88142; 87086

== ENCOUNTER 2018-09-16 00:17 | Outpatient (CLI) | payer MEDICAID, SELFPAY ==
--- NOTE | 2018-09-16 11:35 | DI.US_ITS ---
SYMPTOMS/DIAGNOSIS: ROUTINE CARE Many abnormalities cannot be diagnosed. A normal exam does not exclude a congenital anomaly. Radiology No. [id number] LMP: Exam Date: [facility] wks days on EDC ([facility]) 02/13/19 Confirmed: HISTORY: PREDICTED GESTATIONAL AGE NUMBER 18+4 weeks with a range of 17+4 weeks to 19+4 weeks. 1 Determined by_X__1ST US___LMP___HISTORY PLACENTA PRESENTATION Grade I Cephalic_X__ Anterior_X__Posterior___ Breech____ Right Left Transverse(head right___ Fundal___Low-lying___Previa___ Transverse(head left___ Varying BIOMETRY AMNIOTIC FLUID BPD: 43 mm 19+1 weeks Normal HC: 165 mm 19+2 weeks AC: 138 mm 19+1 weeks FL: 31 mm 19+4 weeks AMNIOTIC FLUID INDEX >26 WK CRL: mm weeks Cisterna Magna: 2.9 mm CI: 80 RUQ: LUQ Cerebellum: 1.9 cm EFW: 286 grams Percentile: 87th RLQ: LLQ Total: cm Composite AGE= 19+2 wks EDC by US: 02/08/19 BIOPHYSICAL PROFILE ANATOMY IDENTIFIED SCORE 0/2 Heart: 4-Chamber_X__Rate:BPM 160 LVOT: X RVOT:___X Amniotic Fluid(>2cms)____ Stomach:___X____ Kidneys:___X____ Respirations (>30 secs) Bladder:____X____ Post. Fossa: X Body Flex/Extension 3-vessel cord:___X____Ventricles: X Cord insertion:___X__ Lips:_X___ Extremity Flex/Extension Spinal morphology:___X Nose:__X___ Total Score= Palate:___X____ NS=not seen
== END 2018-09-16 00:37 ==
PROVIDERS: Visit Provider Advanced Practice Midwife
DX: Z34.92 Encounter for supervision of normal pregnancy, unspecified, second trimester (principal)
CPT/HCPCS: 76805

== ENCOUNTER 2018-11-25 08:27 | Outpatient (CLI) | payer MEDICAID, SELFPAY ==
[2018-11-25 09:31] LABS: HCT 33.3 % (36.0-46.0); HGB 11.2 g/dL (12.0-15.5); Mean Corp. HGB Concentration 33.6 g/dL (32.0-36.0); Mean Corpuscular Hemoglobin 32.7 pg (27.0-33.0); Mean Corpuscular Volume 97.4 fL (80-95); Mean Platelet Volume 9.8 fL (8.0-11.0); Platelet Count 247 x1000/uL (130-400); RBC 3.42 m/cumm (4.00-5.20); RBC Distribution Width 12.2 % (11.7-14.6); White Blood Cell Count 11.26 k/cumm (4.4-10.8)
[2018-11-25 09:48] LABS: Glucose,1 Hr (Glucola) 97 mg/dL (80-140)
== END 2018-11-25 08:47 ==
PROVIDERS: PCP Nurse Practitioner Family; Visit Provider Advanced Practice Midwife
DX: Z34.92 Encounter for supervision of normal pregnancy, unspecified, second trimester (principal)
CPT/HCPCS: 36415; 82950; 85027

== ENCOUNTER 2019-01-22 09:00 | Outpatient (REF) | payer MEDICAID, SELFPAY | END 2019-01-22 09:20 | LOC: LBN 09:00 | PROVIDERS: PCP Nurse Practitioner Family; Visit Provider Advanced Practice Midwife | DX: Z34.93 Encounter for supervision of normal pregnancy, unspecified, third trimester (principal); Z36.85 Encounter for antenatal screening for Streptococcus B | CPT/HCPCS: 87081 ==

== ENCOUNTER 2019-01-29 21:40 | Outpatient (REF) | payer MEDICAID, SELFPAY ==
[2019-01-29 18:20] LABS: *AMPHETAMINES SCREEN URINE Negative (Negative); *BARBITURATES SCREEN URINE Negative (Negative); *BENZODIAZEPINES SCREEN URINE Negative (Negative); Cannabinoids THC Negative (Negative); Cocaine Screen,Urine Negative (Negative); METHADONE URINE SCREEN Negative (Negative); OPIATES URINE SCREEN Negative (Negative)
[2019-01-29 18:55] LABS: Tricyclic Antidepressants Negative (Negative)
[2019-02-09 09:34] LABS: Buprenorphine Negative; Norbuprenorphine Negative
== END 2019-01-29 22:00 ==
LOC: LBN 21:40
PROVIDERS: PCP Nurse Practitioner Family; Visit Provider Advanced Practice Midwife
DX: Z34.93 Encounter for supervision of normal pregnancy, unspecified, third trimester (principal)
CPT/HCPCS: 80307

== ENCOUNTER 2019-02-18 12:18 | Inpatient (IN) | payer MEDICAID, SELFPAY ==
[2019-02-18 14:50] LABS: HCT 36.6 % (36.0-46.0); HGB 12.5 g/dL (12.0-15.5); Mean Corp. HGB Concentration 34.2 g/dL (32.0-36.0); Mean Corpuscular Hemoglobin 33.1 pg (27.0-33.0); Mean Corpuscular Volume 96.8 fL (80-95); Mean Platelet Volume 10.3 fL (8.0-11.0); Platelet Count 284 x1000/uL (130-400); RBC 3.78 m/cumm (4.00-5.20); RBC Distribution Width 11.7 % (11.7-14.6); White Blood Cell Count 14.72 k/cumm (4.4-10.8)
[2019-02-18] MEDS: Normal Saline Flush 10 ML SYR IVP ×2 (15:00→18:54)
[2019-02-18] MEDS: miSOPROStol 25 MCG TAB 50 MCG PO (15:37)
[2019-02-18] MEDS: Normal Saline Flush 10 ML SYR (20:45)
[2019-02-18] MEDS: Zolpidem 5 MG TAB 10 MG PO (21:37)
[2019-02-19 06:50] LABS: HCT 37.4 % (36.0-46.0); Mean Corp. HGB Concentration 34.8 g/dL (32.0-36.0); Mean Corpuscular Hemoglobin 33.4 pg (27.0-33.0); Mean Corpuscular Volume 96.1 fL (80-95); Platelet Count 264 x1000/uL (130-400); RBC 3.89 m/cumm (4.00-5.20); RBC Distribution Width 11.7 % (11.7-14.6); White Blood Cell Count 20.18 k/cumm (4.4-10.8)
[2019-02-19] MEDS: miSOPROStol 25 MCG TAB (08:09)
[2019-02-19] MEDS: Normal Saline Flush 10 ML SYR IVP ×2 (12:36→14:36)
[2019-02-19] MEDS: Lactated Ringers 1,000 ML 200 ML IV ×2 (14:36→18:02)
[2019-02-19] MEDS: fentaNYL 100 MCG/2 ML VIAL (17:27)
[2019-02-19] MEDS: Bupivacaine 0.25% Pres-Free 30 ML VIAL ×3 (17:28→17:38)
[2019-02-19] MEDS: FentaNYL/ROPIvacaine 2 mcg/ml and 0.1% 200 ML CADD Cassette EP (18:00)
[2019-02-20] MEDS: Acetaminophen 325 MG TAB 650 MG PO ×3 (03:25→17:27)
[2019-02-20] MEDS: Ibuprofen 600 MG TAB PO ×3 (03:26→17:28)
[2019-02-20] MEDS: Hamamelis Leaf/Glycerin 100 EACH BOX PR (17:25)
[2019-02-21] MEDS: Acetaminophen 325 MG TAB 650 MG PO ×2 (03:44→08:19)
[2019-02-21] MEDS: Ibuprofen 600 MG TAB PO ×2 (03:44→11:26)
[2019-02-21 08:32] LABS: HCT 32.8 % (36.0-46.0); Mean Corp. HGB Concentration 33.5 g/dL (32.0-36.0); Mean Corpuscular Volume 98.5 fL (80-95); Mean Platelet Volume 10.1 fL (8.0-11.0); Platelet Count 257 x1000/uL (130-400); RBC 3.33 m/cumm (4.00-5.20); RBC Distribution Width 11.8 % (11.7-14.6); White Blood Cell Count 17.23 k/cumm (4.4-10.8)
== END 2019-02-21 12:15 | disposition home or self-care (01) | DRG 807 ==
PROVIDERS: Admitting Provider Advanced Practice Midwife; PCP Nurse Practitioner Family; Visit Provider Advanced Practice Midwife
DX: O70.0 First degree perineal laceration during delivery (principal); Z37.0 Single live birth; O63.0 Prolonged first stage (of labor); O62.1 Secondary uterine inertia; O77.0 Labor and delivery complicated by meconium in amniotic fluid; O48.0 Post-term pregnancy; Z3A.40 40 weeks gestation of pregnancy; O42.12 Full-term premature rupture of membranes, onset of labor more than 24 hours following rupture; O75.89 Other specified complications of labor and delivery; O99.62 Diseases of the digestive system complicating childbirth; K21.9 Gastro-esophageal reflux disease without esophagitis; N76.0 Acute vaginitis; B96.89 Other specified bacterial agents as the cause of diseases classified elsewhere
CPT/HCPCS: 36415; 85027; 86850; 86900; 86901; 59200; 87480; 87510; 87660; J3010; J3490

== ENCOUNTER 2019-03-01 16:59 | Emergency (ER) | payer MEDICAID, SELFPAY ==
[2019-03-01 17:06] VITALS: BP 135/96; PULSE 81; RESP 20; TEMP 36.8; O2SAT 99
--- NOTE | 2019-03-01 17:44 | ED.GENADUL_ITS ---
Discharge Plan Disposition Patient Disposition: HOME Condition: Stable Discharge Details Chief Complaint: RashLesion Clinical Impression: Rash due to allergy Primary Care Provider: Jv Boo ED Provider: Jaime Meng Home Meds and New Rx's Prescriptions: No Action PNV no.274-pjjp-ngrki acid 28 mg iron- 800 mcg tablet 1 tab PO DAILY Qty: 90 RF: 3 acetaminophen [Tylenol] 325 MG tablet 325 mg PO DIRECTED PRNRF: 0 ranitidine HCl [Zantac] 150 mg tablet 150 mg PO PRN PRNRF: 0 Discharge Instructions Instructions: Urticaria (ED) Additional Instructions: Continue to avoid any new soaps lotions or medications. Return immediately to the emergency department for fever chills, cough, nasal congestion, or any difficulty breathing. Otherwise follow-up with your primary care provider as needed. If you choose you may use [id number] Claritin as needed for allergic reaction but please watch your infant for any sedation, irritability, or change in behavior. Referrals: Jv Boo, FRONT OFFICE SPEC [Primary Care Provider] - (As needed) Discharge Data Discharge Date/Time-TO BE ENTERED AT DEPARTURE: 03/01/19 17:52 Medical Decision Making Patient presenting to the emergency department for chief complaint of rash. Patient states that yesterday she noticed a small amount of red rash to her bilateral breast. Patient has a 10-day-old infant and was not sure what rash was so was presenting to the ED. Patient denies any fever chills, cough, nasal congestion, sore throat, new soaps lotions or medications. Physical exam shows a macular diffuse reddened rash to the anterior trunk. There is no ecchymosis, rash is not papular, not tender, no specific distribution pattern. Patient does report previous history of somewhat similar rashes with allergic reaction she has had in the past. Rash is not consistent with mastitis, patient is afebrile has no cold or viral type symptoms. I feel that this is a high likelihood given patient's allergies and similar rash in the past to something allergenic. Given that patient is breast-feeding she was recommended to use Claritin as needed. Close return precautions were discussed and patient was informed also observe her for any symptoms and to contact flour mixer helper if this occurs but otherwise I feel that patient does not have any life-threatening rash is otherwise stable and safe to be discharged. After discussion of diagnosis and plan of care patient has no further needs, questions, or concerns and states clear understanding to return to the emergency department for any worsening symptoms. HPI General Mode of arrival: ambulatory . Date/Time Provider Initiated Documentation: 03/01/19 17:44 . Limitations to Documentation: no limitations . Information obtained by: patient and RN notes reviewed . History of Present Illness 23 year old F presents to the emergency department with the chief complaint of Rash, described as similar to prior episodes, Quality is described as other (Denies pain or discomfort), Patient started experiencing this day(s) (1) and it has been constant. No relieving factors improve symptom(s), No exacerbating factors reported . Patient notes no other symptoms.. Patient did receive the following treatments prior to arrival, none Related Data Home Medications Medication Instructions Recorded Confirmed acetaminophen [Tylenol] 325 mg PO DIRECTED PRN 02/06/17 03/01/19 vitamins no.121-iron 28 1 tab PO DAILY #90 tab 12/25/18 03/01/19 mg-folic acid 800 mcg tablet ranitidine HCl [Zantac] 150 mg PO PRN PRN 02/20/19 03/01/19 Previous Rx's Medication Instructions Recorded vitamins no.121-iron 28 1 tab PO DAILY #90 tab 12/25/18 mg-folic acid 800 mcg tablet Allergies Allergy/AdvReac Type Severity Reaction Status Date / Time shell fish Allergy Intermediate Hives Uncoded 02/19/19 03:51 General Stated Complaint: RashLesion BRIAN: 4 Review of Systems Constitutional Constitutional: Denies body ache(s), Denies fever(s) and Denies headache(s) ENT Ears, Nose, Mouth, and Throat: Denies headache(s) Cardiovascular Cardiovascular: Denies chest pain Respiratory Respiratory: Denies cough Genitourinary Genitourinary: Denies nipple discharge Integumentary/Breasts Skin/Breast: Reports as per HPI, Denies breast swelling, Denies breast pain, Denies nipple discharge, Denies erythema, Reports rash and Denies unusual bruising Neurologic Neurologic: Denies headache(s) and Denies paresthesias [facility] Medical History Anxiety (Chronic) Asthma Chronic GERD (Acute) History of fracture of leg (Acute) age 2 Family History Mother Hypertension tx w/ meds Diabetes type 2 Father Asthma Hyperlipidemia Social History Smoking/Tobacco Use Status: Never Alcohol Intake: former Drug use: Never Substance use type: does not use Do you feel safe in your relationship?: Yes Female Reproductive History Menstrual Age of Menarche: 12 Duration of menses: 3-5 days control method: patch (unplanned 2` to unable to refill patch. al) History History 1 Para 0 Hx # Term Pregnancies 0 Multiple births 0 Hx # Pregnancies 0 Ectopic pregnancies 0 AB induced 0 Hx Number of Living Children 0 AB spontaneous 0 Exam Const General: cooperative, comfortable and no acute distress Orientation: alert, awake and oriented x3 Resp Effort & Inspection: normal respiratory effort and able to speak in complete sentences Skin Rashes: rashes noted macules diffuse anterior truncal color red; with a non- erythematous base and surface blanching and dry; fluctuant not assessed and n ontender Neuro General: alert, awake and oriented x3 Course Vital Signs Vital signs: Vital Signs Temperature 36.8 C 03/01/19 17:06 Pulse 81 03/01/19 17:06 Respiratory Rate 20 03/01/19 17:06 Blood Pressure 135/96 H 03/01/19 17:06 Pulse Oximetry 99 03/01/19 17:06 Temperature 36.8 C 03/01/19 17:06 Temperature Source Skin 03/01/19 17:06 Pulse 81 03/01/19 17:06 Respiratory Rate 20 03/01/19 17:06 Respiratory Effort Non-Labored 03/01/19 17:16 Blood Pressure 135/96 H 03/01/19 17:06 Blood Pressure Position Sitting 03/01/19 17:06 Pulse Oximetry 99 03/01/19 17:06 Oxygen Delivery Method Room Air 03/01/19 17:06 Oxygen Flow Rate 0 03/01/19 17:06
== END 2019-03-01 17:52 | disposition home or self-care (01) ==
PROVIDERS: Emergency Provider Nurse Practitioner Family; PCP Nurse Practitioner Family
DX: R21 Rash and other nonspecific skin eruption (principal)
CPT/HCPCS: 99282

== ENCOUNTER 2019-03-30 11:15 | Emergency (ER) | payer MEDICAID, SELFPAY ==
[2019-03-30 11:21] VITALS: BP 118/68; PULSE 78; RESP 16; TEMP 36.5; O2SAT 98
--- NOTE | 2019-03-30 11:41 | W.ED.GENAD ---
Discharge Plan Disposition Patient Disposition: HOME Discharge Details Chief Complaint: RECEPTION AGENT Clinical Impression: Abnormal vaginal bleeding Primary Care Provider: Jv Boo ED Provider: Mike Polk Home Meds and New Rx's Prescriptions: No Action PNV no.617-xvjf-cfdgs acid 28 mg iron- 800 mcg tablet 1 tab PO DAILY Qty: 90 RF: 3 acetaminophen [Tylenol] 325 MG tablet 325 mg PO DIRECTED PRNRF: 0 Discharge Instructions Instructions: Dysfunctional Uterine Bleeding (ED) Additional Instructions: Your bleeding today is most likely result of taking the morning after pill. Continue to monitor your symptoms and if your bleeding increases substantially or you develop severe pain and/or lightheadedness she need to be reevaluated in the emergency department. Keep your appointment with OB this Saturday. Referrals: Claudine Mora MD [ [facility] STAFF PHYSICIAN] - 04/03/19 Medical Decision Making Patient is a nontoxic-appearing 23-year-old female who presents to the emergency department with vaginal bleeding. She is 6 weeks status post normal vaginal delivery. Her physical exam is unremarkable with the exception of mild bleeding from the cervix. Labs within normal limits. Patient after initial history admitted to taking the morning after pill roughly 3 days prior to the onset of her vaginal bleeding. Most likely the cause of her bleeding at this time. Discussed the case with Dr. Jimenez who agrees. Patient has follow-up in their office in 4 days for which I have urged her to keep. We discussed return precautions including severe increase in bleeding, severe pain, lightheadedness or severe fatigue. HPI General Date/Time Provider Initiated Documentation: 03/30/19 11:23. HPI Narrative: Patient is a G1, P1 6 weeks status post normal vaginal delivery who presents to the emergency department with increased vaginal bleeding over the last 2 days. She states that she is going through roughly 1 pad every 2-3 hours over the last 12 hours. She reports some lower abdominal cramping and lightheadedness. No syncope or chest pain. She has scheduled OB follow-up in 4 days. Related Data Home Medications Medication Instructions Recorded Confirmed acetaminophen [Tylenol] 325 mg PO DIRECTED PRN 02/06/17 03/30/19 vitamins no.121-iron 28 1 tab PO DAILY #90 tab 12/25/18 03/30/19 mg-folic acid 800 mcg tablet Previous Rx's Medication Instructions Recorded vitamins no.121-iron 28 1 tab PO DAILY #90 tab 12/25/18 mg-folic acid 800 mcg tablet Allergies Allergy/AdvReac Type Severity Reaction Status Date / Time shell fish Allergy Intermediate Hives Uncoded 03/30/19 11:25 General Stated Complaint: RECEPTION AGENT BRIAN: 3 Review of Systems Constitutional Constitutional: Reports fatigue and Reports lethargy ENT Ears, Nose, Mouth, and Throat: Denies neck pain Cardiovascular Cardiovascular: Denies chest pain and Denies dyspnea Respiratory Respiratory: Denies dyspnea Gastrointestinal Gastrointestinal: Denies melena, Denies hematochezia, Reports cramping, Denies nausea and Denies vomiting Genitourinary Genitourinary: Reports abnormal vaginal bleeding, Reports metrorrhagia, Denies hematuria, Denies urinary frequency, Denies difficulty voiding, Denies dysuria, Denies pelvic pain, Denies flank pain, Denies vaginal discharge and Denies vaginal pruritus Musculoskeletal Musculoskeletal: Denies neck pain, Denies numbness and Denies stiffness Integumentary/Breasts Skin/Breast: Denies rash Neurologic Neurologic: Denies numbness Endocrine Endocrine: Reports fatigue PFSH Medical History Anxiety (Chronic) Asthma Chronic GERD (Acute) History of fracture of leg (Acute) age 2 (Acute) 22 yo G1 8.0 week by LMP and 8.0 week US SHADIA 02/13/19 vitamins schedule initial OB visit Family History Mother Hypertension tx w/ meds Diabetes type 2 Father Asthma Hyperlipidemia Social History Smoking/Tobacco Use Status: Never Alcohol Intake: former Drug use: Never Substance use type: does not use Do you feel safe in your relationship?: Yes Female Reproductive History Menstrual Age of Menarche: 12 Duration of menses: 3-5 days control method: patch (unplanned 2` to unable to refill patch. al) History History 1 Para 1 Hx # Term Pregnancies 1 Multiple births 0 Hx # Pregnancies 0 Ectopic pregnancies 0 AB induced 0 Hx Number of Living Children 0 AB spontaneous 0 Past Pregnancies Del. Date GA/Weeks # Outcome Route Wgt Sex Labor Lgth Anesthesia Location Prov Complic 02/19/19 40 No Successful vaginal 3.856 kg Female regional Wero Mcdaniels CNM Delivery Date: 02/19/19 On 03/03/19 @ 08:55 Argenis Quijano Induced for Prolonged ROM, postdates. 1st degree vaginal laceration, repaired. Exam Const General: cooperative, healthy appearing, comfortable and no acute distress Orientation: alert, awake and oriented x3 HENMT Head: normal to inspection Teeth and gingiva: dentition normal Throat: posterior oropharynx normal Eyes General: appearance normal, both eyes and all related structures Sclera: sclerae normal Cornea: corneas normal Pupils: PERRL EOM: EOM intact bilaterally Neck Neck: normal visual inspection and full ROM Chest Chest: normal inspection of the chest Resp Effort & Inspection: normal respiratory effort and able to speak in complete sentences Auscultation: clear to auscultation bilaterally Cardio Rate: regular rate Rhythm: regular rhythm Heart Sounds: S1 normal and S2 normal Pulses: normal peripheral pulses GI Inspection: normal to inspection Palpation: soft External Female Exam: external appearance normal Speculum Exam - Vagina: normal appearance of the vagina Speculum Exam - Cervix: normal appearance of the cervix and abnormal cervical discharge bloody; without tissue Bimanual Exam- Vagina & Uterus: normal bimanual exam Back/Spine/Pelvis Back: no CVA tenderness Skin General skin exam: no rashes or lesions noted Course Vital Signs Vital signs: Vital Signs Temperature 36.5 C 03/30/19 11:21 Pulse 78 03/30/19 11:21 Respiratory Rate 16 03/30/19 11:21 Blood Pressure 118/68 03/30/19 11:21 Pulse Oximetry 98 03/30/19 11:21 Temperature 36.5 C 03/30/19 11:21 Temperature Source Skin 03/30/19 11:21 Pulse 78 03/30/19 11:21 Respiratory Rate 16 03/30/19 11:21 Respiratory Effort Non-Labored 03/30/19 11:21 Blood Pressure 118/68 03/30/19 11:21 Blood Pressure Position Sitting 03/30/19 11:21 Pulse Oximetry 98 03/30/19 11:21 Oxygen Delivery Method Room Air 03/30/19 11:21 Oxygen Flow Rate 0 03/30/19 11:21 Pain Level 0 03/30/19 11:25
[2019-03-30 12:26] LABS: Abs Immature Grans 0.02 k/cumm (0.0-0.09); Absolute Basophil Count 0.04 k/cumm (0.0-0.2); Absolute Eosinophil Count 0.37 k/cumm (0.0-0.7); Absolute Lymphocyte Count 2.72 k/cumm (1.2-3.4); Absolute Monocyte Count 0.48 k/cumm (0.11-0.7); Absolute Neutrophil Count 4.96 k/cumm (1.2-6.7); Basophils % 0.5; Eosinophils % 4.3; HCT 39.9 % (36.0-46.0); HGB 13.5 g/dL (12.0-15.5); Immature Grans % 0.2; Lymphocytes % 31.7; Mean Corp. HGB Concentration 33.8 g/dL (32.0-36.0); Mean Corpuscular Volume 94.5 fL (80-95); Mean Platelet Volume 10.4 fL (8.0-11.0); Monocytes % 5.6; Neutrophils % 57.7; Platelet Count 313 x1000/uL (130-400); RBC 4.22 m/cumm (4.00-5.20); RBC Distribution Width 11.3 % (11.7-14.6); White Blood Cell Count 8.59 k/cumm (4.4-10.8)
[2019-03-30 12:47] LABS: ALT 50 U/L (14-59); AST 25 U/L (15-37); Albumin 3.8 g/dL (3.4-5.0); Alkaline Phosphatase 89 U/L (46-116); Anion Gap 9.6 mmol/L (3-11); BUN 15 mg/dL (7-18); Bilirubin, Total 0.3 mg/dL (0.2-1.0); CO2 26.4 mmol/L (21.0-32.0); CREATININE 0.76 mg/dL (0.55-1.02); Calcium 8.6 mg/dL (8.5-10.1); Chloride 107 mmol/L (98-107); Glucose 102 mg/dL (70-100); Potassium 3.8 mmol/L (3.5-5.1); Sodium 143 mmol/L (136-145); Total Protein 7.2 g/dL (6.4-8.2)
[2019-03-30 13:37] LABS: HCG Qual (Serum) Negative
[2019-03-30 14:42] VITALS: BP 111/78; PULSE 76; RESP 16; TEMP 36.8; O2SAT 98
[2019-03-31 13:06] LABS: Chlamydia Result Positive (Negative); GC Result Negative (Negative); Specimen Description CERVIX
--- NOTE | 2019-03-31 13:23 | NUR.NOTE ---
Nursing Note: Per Yasir - Marla, positive chlamydia results. Results given to Dr. Plunkett. Esthela Kern.
--- NOTE | 2019-03-31 20:45 | W.ED.FU ---
Patient called on her cell phone to inform her to return call to the emergency department for results of her testing. She had a positive chlamydia test and was not given an antibiotic. She was given ER number to return call. Information was given to ED secretary to board of commissioners Laura Lopez regarding my voicemail left for patient and to have ED provider follow-up with patient for confirming her pharmacy and to call in an antibiotic.
--- NOTE | 2019-04-01 22:09 | ED.FU.B_ITS ---
Date of service: 03/30/19 Follow Up Plan: Patient was seen on Saturday for vaginal bleeding. GC and Chlamydia probe positive for chlamydia. Patient called back tonight and I spoke with her. She is breast-feeding. She is not . Will need to call in prescription for a [facility] g x [facility] [place] tomorrow [facility]. Patient to have her partner follow-up for evaluation and treatment. Patient has her own follow-up with PAPER PRODUCTS INSPECTOR on Saturday this week.
== END 2019-03-30 14:35 | disposition home or self-care (01) ==
PROVIDERS: Emergency Provider Physician Assistant; PCP Nurse Practitioner Family
DX: N93.9 Abnormal uterine and vaginal bleeding, unspecified (principal)
CPT/HCPCS: 36415; 80053; 86850; 86900; 86901; 87491; 87591; 99282; 84703; 85025; 87480; 87510; 87660

== ENCOUNTER 2019-04-02 12:44 | Outpatient (REF) | payer MEDICAID, SELFPAY ==
[2019-04-06 13:20] LABS: Syphilis Serology (RPR) Negative (Negative)
[2019-04-06 16:11] LABS: Hepatitis C Ab w Rflx HCV PCR Negative (NEGAT)
[2019-04-06 16:27] LABS: HBs Antibody, Quant 13.2 mIU/mL; Hepatitis B Surface Ab Positive; Hepatitis B Surface Ag Negative (NEGAT)
[2019-04-06 16:32] LABS: HIV-1/2 Ag & Ab Screen Negative (NEGAT)
== END 2019-04-02 13:04 ==
LOC: NCHCN 12:44
PROVIDERS: PCP Nurse Practitioner Family; Visit Provider Nurse Practitioner Family
DX: Z20.2 Contact with and (suspected) exposure to infections with a predominantly sexual mode of transmission (principal); Z11.59 Encounter for screening for other viral diseases
CPT/HCPCS: 86706; 86803; 87340; 87389; 86592

== ENCOUNTER 2019-04-22 23:18 | Emergency (ER) | payer MEDICAID, SELFPAY ==
--- NOTE | 2019-04-22 00:44 | DI.CT_ITS ---
EXAM: CT HEAD WO CLINICAL HISTORY: headache, dizzy TECHNIQUE: Imaging Protocol: Axial computed tomography images with coronal and sagittal reformatted images were created and reviewed COMPARISON: No exams were available for comparison FINDINGS: Ventricles and Extra axial spaces: Normal in size and morphology for the patient's age. Hemorrhage: None. Cerebral parenchyma: Normal. Midline shift: None. Brainstem/Cerebellum: Normal. Calvarium: Normal. Visualized Paranasal sinuses/Mastoids: Clear. IMPRESSION: Normal CT of the head. DATA REPOSITORY: All CT scans at this facility are submitted to the National Radiology Data Registry (NRDR) Dose Index Registry (DIR) with the [employer] (ACR). RADIATION OPTIMIZATION: All CT scans at this facility use at least one of these dose optimization te chniques: automated exposure control; mA and/or kV adjustment per patient size (includes targeted exa ms where dose is matched to clinical indication); or iterative reconstruction.
[2019-04-22 23:24] VITALS: BP 125/75; PULSE 100; RESP 16; TEMP 36.4; O2SAT 96
[2019-04-22 23:28] VITALS: RESP 16
--- NOTE | 2019-04-22 23:32 | ED.GENADUL_ITS ---
Discharge Plan Disposition Patient Disposition: HOME Condition: Good Discharge Details Chief Complaint: Dizzy/Sync Clinical Impression: Headache Primary Care Provider: Jv Boo ED Provider: Avelino Morrison Home Meds and New Rx's Prescriptions: Continued PNV no.240-eisn-csygz acid 28 mg iron- 800 mcg tablet 1 tab PO DAILY Qty: 90 RF: 3 norethindrone (contraceptive) 0.35 mg tablet 0.35 mg PO DAILY Qty: 84 RF: 3 acetaminophen [Tylenol] 325 MG tablet 325 mg PO DIRECTED PRNRF: 0 Discharge Instructions Instructions: General Headache (ED) Additional Instructions: Laboratory studies and CT scan are fine. We had discussion regarding subarachnoid hemorrhage, lumbar puncture, risk and benefit and you have elected to decline lumbar puncture. He will contact primary care tomorrow for follow- up. Return to ED for worsening headache, fever, neurologic changes, other concerns or problems. Referrals: Jv Boo, SHOW HORSE DRIVER [Primary Care Provider] - Medical Decision Making Patient presenting with complaint of frontal throbbing headache that she has never had previously and is worse of her life. She felt warm at home but nobody took her temperature. She is afebrile here. She has normal mental status and no evidence of meningeal signs. She has significant tenderness over the frontal sinus. She has some mild erythema to the right TM. Complains of sore throat but has normal posterior oropharynx. She does have a few anterior lymph nodes. There is may very well just be viral sinusitis. She is neurologically intact. Her gait is normal. She is not describing a constant vertigo and it does not sound severe. I do not think this is meningitis. Also not overly concerned for subarachnoid hemorrhage but she is describing different and more severe headache than typical. Discussed options and work-up including CAT scan and spinal tap. For now will place IV and give fluids, Toradol, Reglan. Patient is breast-feeding a 2-month-old but these meds are fine with . Will check basic labs and will obtain head CT. Patient laboratory studies essentially unremarkable. White count is normal. Potassium minimally low. CT scan is normal. No bleed, sinusitis, other pathology. Patient reports feeling markedly better after medications and fluids. Nausea and dizziness is gone. Headache is essentially gone. We had further discussion regarding subarachnoid hemorrhage, spinal taps, complications, risk and benefits. She has elected not to go forward with lumbar puncture. She would like to go home and sleep and see how she feels in the morning. She will contact primary care for follow-up. Return to ED if worsening headache, fever, neurologic changes, other concerns or problems. Lab Data Lab results reviewed: Yes I reviewed the patient's lab results. HPI General Mode of arrival: ambulatory . Date/Time Provider Initiated Documentation: 04/22/19 23:29 . Limitations to Documentation: no limitations . Information obtained by: patient, RN notes reviewed and old records reviewed . HPI Narrative: Patient presents to ED with complaint of headache and dizziness. Patient reports onset of headache yesterday. Describes it as frontal and behind the eyes and throbbing. Typically does not get headaches and when she does they are nothing like this. This morning she felt dizzy with some intermittent spinning. She gets nauseated when she closes her eyes. There has been no vomiting. Mother thought she felt quite warm tonight but no one actually took her temperature. She took Tylenol. She denies any neurologic changes. She has some mild photophobia, sore throat. She denies significant nasal congestion or earache. She has no neck pain. Related Data Home Medications Medication Instructions Recorded Confirmed acetaminophen [Tylenol] 325 mg PO DIRECTED PRN 02/06/17 04/22/19 vitamins no.121-iron 28 1 tab PO DAILY #90 tab 12/25/18 04/22/19 mg-folic acid 800 mcg tablet norethindrone (contraceptive) 0.35 0.35 mg PO DAILY #84 tab 04/06/19 04/22/19 mg tablet Previous Rx's Medication Instructions Recorded vitamins no.121-iron 28 1 tab PO DAILY #90 tab 12/25/18 mg-folic acid 800 mcg tablet norethindrone (contraceptive) 0.35 0.35 mg PO DAILY #84 tab 04/06/19 mg tablet Allergies Allergy/AdvReac Type Severity Reaction Status Date / Time shell fish Allergy Intermediate Hives Uncoded 04/06/19 13:07 General Stated Complaint: Dizzy/Sync BRIAN: 3 Review of Systems Narrative: 03/16 Review of Systems completed and is negative except as stated above in HPI (Systems reviewed: Const, Eyes, ENT, Resp, CV, GI, , MSK, Skin, Neuro) [facility] Medical History Anxiety (Chronic) Asthma Chronic GERD (Acute) History of fracture of leg (Acute) age 2 Social History Smoking/Tobacco Use Status: Never Alcohol Intake: former Drug use: Never Substance use type: does not use Do you feel safe at home: Yes Do you feel safe in your relationship?: Yes Female Reproductive History Menstrual Age of Menarche: 12 Duration of menses: 3-5 days control method: patch (unplanned 2` to unable to refill patch. al) History History 1 Para 1 Hx # Term Pregnancies 1 Multiple births 0 Hx # Pregnancies 0 Ectopic pregnancies 0 AB induced 0 Hx Number of Living Children 0 AB spontaneous 0 Past Pregnancies Del. Date GA/Weeks # Outcome Route Wgt Sex Labor Lgth Anesthes ia Location Prov Complic 02/19/19 40 No Successful vaginal 3.856 kg Female [facility] Wero Mcdaniels CNM Delivery Date: 02/19/19 On 03/03/19 @ 08:55 Argenis Quijano Induced for Prolonged ROM, postdates. 1st degree vaginal laceration, repaired. Exam Narrative Exam Narrative: Vitals: Afebrile. Slight tachycardia otherwise normal vitals and room air pulse ox. Const: WDWN female in NAD. HEENT: NC/AT. Mild tenderness with palpation over maxillary sinuses. Significant tenderness with palpation of frontal sinus. Left TM normal. Right TM mildly erythematous. Oropharynx clear. Eyes: Normal conjunctiva and sclera. PERRL and EOMI. Neck: Supple. Trachea midline. No meningeal signs. Lungs: Normal respiratory effort. Lungs are clear. Cor: RRR without murmur/gallop. Good radial pulses. Neuro: A+O x 3. CN II - XII in tact. Normal speech, gait, mentation, strength, sensation and [id number] testing. Ext: No C/C/E. Skin: Warm and dry without rash. Course Vital Signs Vital signs: Vital Signs Temperature 97.5 F L 04/22/19 23:24 Pulse 100 H 04/22/19 23:24 Respiratory Rate 16 04/22/19 23:24 Blood Pressure 125/75 04/22/19 23:24 Pulse Oximetry 96 04/22/19 23:24 Temperature 97.5 F L 04/22/19 23:24 Temperature Source Skin 04/22/19 23:24 Pulse 100 H 04/22/19 23:24 Respiratory Rate 16 04/22/19 23:28 Respiratory Effort 04/22/19 23:28 Respiratory Depth Normal 04/22/19 23:28 Respiratory Pattern Normal 04/22/19 23:28 Blood Pressure 125/75 04/22/19 23:24 Blood Pressure Position Sitting 04/22/19 23:24 Pulse Oximetry 96 04/22/19 23:24 Pain Level 6 04/22/19 23:24 Comment 04/22/19 23:24
[2019-04-23] MEDS: Metoclopramide 10 MG/2 ML VIAL IVP (00:09)
[2019-04-23] MEDS: Normal Saline 1,000 ML 1000 ML IV (00:09)
[2019-04-23] MEDS: Normal Saline Flush 10 ML SYR IVP (00:10)
[2019-04-23] MEDS: Ketorolac 15 MG/ML VIAL IVP (00:10)
[2019-04-23 00:20] LABS: Abs Immature Grans 0.01 k/cumm (0.0-0.09); Absolute Basophil Count 0.01 k/cumm (0.0-0.2); Absolute Eosinophil Count 0.08 k/cumm (0.0-0.7); Absolute Lymphocyte Count 1.19 k/cumm (1.2-3.4); Absolute Monocyte Count 0.62 k/cumm (0.11-0.7); Basophils % 0.2; Eosinophils % 1.2; HCT 35.7 % (36.0-46.0); HGB 12.5 g/dL (12.0-15.5); Immature Grans % 0.2; Lymphocytes % 18.3; Mean Corpuscular Hemoglobin 31.9 pg (27.0-33.0); Mean Corpuscular Volume 91.1 fL (80-95); Mean Platelet Volume 10.3 fL (8.0-11.0); Monocytes % 9.5; Neutrophils % 70.6; Platelet Count 264 x1000/uL (130-400); RBC 3.92 m/cumm (4.00-5.20); White Blood Cell Count 6.51 k/cumm (4.4-10.8)
[2019-04-23 00:26] LABS: Anion Gap 10.1 mmol/L (3-11); BUN 8 mg/dL (7-18); CO2 23.9 mmol/L (21.0-32.0); CREATININE 0.67 mg/dL (0.55-1.02); Calcium 8.4 mg/dL (8.5-10.1); Chloride 104 mmol/L (98-107); Glucose 95 mg/dL (74-106); Potassium 3.4 mmol/L (3.5-5.1); Sodium 138 mmol/L (136-145)
--- NOTE | 2019-04-23 00:49 | DI.VRAD_ITS ---
PROCEDURE INFORMATION: Exam: CT Head Without Contrast Exam date and time: 04/22/2019 11:55 PM Age: 23 years old Clinical history: Dizziness; Patient HX: Headache, dizzy TECHNIQUE: Imaging protocol: Computed tomography of the head without contrast. Radiation optimization: All CT scans at this facility use at least one of these dose optimization techniques: automated exposure control; mA and/or kV adjustment per patient size (includes targeted exams where dose is matched to clinical indication); or iterative reconstruction. COMPARISON: No relevant prior studies available. FINDINGS: Brain: No acute intracranial hemorrhage. Bates/white matter differentiation is unremarkable. Cisterns are unremarkable. Brainstem is unremarkable. No suprasellar mass. No mass lesion. No mass effect. Thalamus and hypothalamus are unremarkable. Cerebellum is unremarkable. Ventricles: Normal. No ventriculomegaly. Bones/joints: Unremarkable. No acute fracture. Sinuses: Visualized sinuses are unremarkable. No fluid levels. Mastoid air cells: Visualized mastoid air cells are well aerated. Soft tissues: Unremarkable. IMPRESSION: No evidence of pathology. Dictated and Authenticated by: Johanna Dumont MD. Ordering:LORE You MD
[2019-04-23 01:19] VITALS: BP 105/66; PULSE 85; RESP 16; O2SAT 98
== END 2019-04-23 01:15 | disposition home or self-care (01) ==
PROVIDERS: Emergency Provider Emergency Medicine; PCP Nurse Practitioner Family
DX: R42 Dizziness and giddiness (principal); R51 Headache; E87.6 Hypokalemia
CPT/HCPCS: 36415; 80048; 81025; 96361; 96374; 96375; 99284; 70450; 85025; J1885; J2765

== ENCOUNTER 2019-07-08 00:45 | Emergency (ER) | payer MEDICAID, SELFPAY ==
[2019-07-08 00:49] VITALS: BP 121/75; PULSE 99; RESP 18; TEMP 36.6; O2SAT 99
--- NOTE | 2019-07-08 01:16 | ED.GENADUL_ITS ---
Discharge Plan Disposition Patient Disposition: HOME Condition: Good Discharge Details Chief Complaint: Nausea/Vomit/Diar Clinical Impression: Nausea and vomiting Primary Care Provider: Jv Boo ED Provider: Avelino Morrison Jewett Meds and New Rx's Prescriptions: New metoclopramide HCl 10 mg tablet,disintegrating 10 mg PO Q6H PRN (Reason: nausea and vomiting) Qty: 10 RF: 0 Continued norethindrone (contraceptive) 0.35 mg tablet 0.35 mg PO DAILY Qty: 84 RF: 3 acetaminophen [Tylenol] 325 MG tablet 325 mg PO DIRECTED PRNRF: 0 Discharge Instructions Instructions: Acute Nausea and Vomiting (ED) Additional Instructions: [place] diet and plenty of fluids. Metoclopramide if necessary for recurrent nausea vomiting. Follow-up with primary care next week if not better. Return to ED for persistent vomiting, worsening abdominal pain, bloody diarrhea, fever, other concerns. Referrals: Jv Boo, FIRE ENGINE OPERATOR [Primary Care Provider] - Medical Decision Making Patient with chief complaint of nausea and vomiting. Otherwise generally unwell. Benign abdomen. Not febrile. Essentially normal vital signs except mild tachycardia. Will place IV and give fluids as well as Reglan which is acceptable and breast-feeding women. Will check a chemistry to make sure no electrolyte abnormalities. BMP is fine. test negative. Patient feeling better after fluids and Reglan and is now tolerating holley quinton and crackers. Discharge home with prescription for Reglan to use as needed. Rest and bland diet over the next 1 to 2 days. Follow-up with primary care next week if not better. Return to ED if worse. Lab Data Lab results reviewed: Yes I reviewed the patient's lab results. HPI General Mode of arrival: ambulatory . Date/Time Provider Initiated Documentation: 07/08/19 01:15 . Limitations to Documentation: no limitations . Information obtained by: patient and RN notes reviewed . HPI Narrative: Patient presents to ED with complaint of nausea and vomiting. She did not feel well when she first got up this morning. Subsequently started to have nausea and vomiting in the afternoon. Now has generalized body pain, abdominal cramping, persistent nausea and vomiting. There is no fever or diarrhea. No real respiratory symptoms. At this point unable to keep anything down. She is breast-feeding and would like to avoid medications that could potentially be unsafe for baby. Related Data Home Medications Medication Instructions Recorded Confirmed acetaminophen [Tylenol] 325 mg PO DIRECTED PRN 02/06/17 04/22/19 norethindrone (contraceptive) 0.35 0.35 mg PO DAILY #84 tab 04/06/19 04/22/19 mg tablet metoclopramide HCl 10 mg PO Q6H PRN #10 tab 07/08/19 Previous Rx's Medication Instructions Recorded norethindrone (contraceptive) 0.35 0.35 mg PO DAILY #84 tab 04/06/19 mg tablet metoclopramide HCl 10 mg PO Q6H PRN #10 tab 07/08/19 Allergies Allergy/AdvReac Type Severity Reaction Status Date / Time shell fish Allergy Intermediate Hives Uncoded 07/08/19 00:52 General Stated Complaint: Nausea/Vomit/Diar BRIAN: 3 Review of Systems Narrative: As documented in HPI otherwise negative as below. Const: no fever, chills, weakness Resp: no cough, SOB, pleuritic pain CV: no CP, diaphoresis, edema, syncope GI: abdominal cramps, nausea, vomiting; no diarrhea Neuro: no headache, numbness, focal weakness, confusion PFSH Social History Smoking/Tobacco Use Status: Never Alcohol Intake: former Drug use: Never Substance use type: does not use Do you feel safe at home: Yes Do you feel safe in your relationship?: Yes Female Reproductive History Menstrual Age of Menarche: 12 Duration of menses: 3-5 days control method: patch (unplanned 2` to unable to refill patch. al) History History 1 Para 1 Hx # Term Pregnancies 1 Multiple births 0 Hx # Pregnancies 0 Ectopic pregnancies 0 AB induced 0 Hx Number of Living Children 0 AB spontaneous 0 Past Pregnancies Del. Date GA/Weeks # Outcome Route Wgt Sex Labor Lgth Anesthes ia Location Prov Complic 02/19/19 40 No Successful vaginal 3.856 kg Female [facility] Wero Mcdaniels CNM Delivery Date: 02/19/19 On 03/03/19 @ 08:55 Argenis Quijano Induced for Prolonged ROM, postdates. 1st degree vaginal laceration, repaired. Exam Narrative Exam Narrative: Vitals: Afebrile. Mild tachycardia but otherwise normal vitals and room air pulse oximetry. Const: WDWN female in NAD. HEENT: NC/AT. Normal facial exam. Eyes: Normal conjunctiva and sclera. Neck: Supple. Trachea midline. Lungs: Normal respiratory effort. Lungs are clear. Cor: RRR without murmur/gallop. Good radial pulses. GI: Soft. NT/ND. No guarding or rebound. Neuro: A+O x 3. Normal speech, mentation, gait. Cranial nerves II - XII grossly intact. No gross motor or sensory deficit. Ext: No C/C/E. Skin: Warm and dry without rash. Course Vital Signs Vital signs: Vital Signs Temperature 97.9 F 07/08/19 00:49 Pulse 99 H 07/08/19 00:49 Respiratory Rate 18 07/08/19 00:49 Blood Pressure 121/75 07/08/19 00:49 Pulse Oximetry 99 07/08/19 00:49 Temperature 97.9 F 07/08/19 00:49 Temperature Source Skin 07/08/19 00:49 Pulse 99 H 07/08/19 00:49 Respiratory Rate 18 07/08/19 00:49 Respiratory Effort Non-Labored 07/08/19 00:52 Blood Pressure 121/75 07/08/19 00:49 Pulse Oximetry 99 07/08/19 00:49 Pain Level 6 07/08/19 00:49
[2019-07-08] MEDS: Lactated Ringers 1,000 ML 1000 ML IV (01:44)
[2019-07-08] MEDS: Metoclopramide 10 MG/2 ML VIAL IVP (01:45)
[2019-07-08 02:04] LABS: HCG Qual (Serum) Negative
[2019-07-08 02:08] LABS: Anion Gap 10.4 mmol/L (3-11); BUN 14 mg/dL (7-18); CO2 25.6 mmol/L (21.0-32.0); CREATININE 0.61 mg/dL (0.55-1.02); Calcium 8.6 mg/dL (8.5-10.1); Chloride 103 mmol/L (98-107); Glucose 90 mg/dL (74-106); Potassium 3.5 mmol/L (3.5-5.1); Sodium 139 mmol/L (136-145)
[2019-07-08 02:46] VITALS: BP 121/75; PULSE 90; RESP 18; TEMP 36.6; O2SAT 99
== END 2019-07-08 02:45 | disposition home or self-care (01) ==
PROVIDERS: Emergency Provider Emergency Medicine; PCP Nurse Practitioner Family
DX: R11.2 Nausea with vomiting, unspecified (principal)
CPT/HCPCS: 36415; 80048; 96361; 96374; 99284; 84703; 99283; J2765

== ENCOUNTER 2019-11-04 02:31 | Outpatient (CLI) | payer MEDICAID, SELFPAY ==
[2019-11-04 10:54] LABS: Abs Immature Grans 0.02 k/cumm (0.0-0.09); Absolute Basophil Count 0.01 k/cumm (0.0-0.2); Absolute Eosinophil Count 0.16 k/cumm (0.0-0.7); Absolute Lymphocyte Count 2.12 k/cumm (1.2-3.4); Absolute Monocyte Count 0.43 k/cumm (0.11-0.7); Absolute Neutrophil Count 6.25 k/cumm (1.2-6.7); Basophils % 0.1; Eosinophils % 1.8; HCT 36.4 % (36.0-46.0); HGB 12.5 g/dL (12.0-15.5); Immature Grans % 0.2 %; Lymphocytes % 23.6; Mean Corp. HGB Concentration 34.3 g/dL (32.0-36.0); Mean Corpuscular Hemoglobin 32.5 pg (27.0-33.0); Mean Corpuscular Volume 94.5 fL (80-95); Mean Platelet Volume 10.3 fL (8.0-11.0); Monocytes % 4.8; Neutrophils % 69.5; Platelet Count 297 x1000/uL (130-400); RBC 3.85 m/cumm (4.00-5.20); RBC Distribution Width 11.6 % (11.7-14.6); White Blood Cell Count 8.99 k/cumm (4.4-10.8)
[2019-11-04 11:48] LABS: TSH (W/Ref FT4) 1.21 uIU/mL (0.36-3.74)
[2019-11-05 09:39] LABS: Hepatitis B Surface Ag Negative (Negative)
[2019-11-05 10:39] LABS: Rubella IgG Ab (UVM) Positive (See Note); Varicella IgG Antibody Positive (See Note)
[2019-11-05 11:05] LABS: HIV-1/2 Ag & Ab Screen Negative (Negative)
[2019-11-05 11:14] LABS: Hepatitis C Ab w Rflx HCV PCR Negative (Negative)
[2019-11-06 10:06] LABS: Syphilis Total Ab w/Reflex Nonreactive (Nonreactive)
== END 2019-11-04 02:51 ==
PROVIDERS: Advanced Practice Midwife; PCP Nurse Practitioner Family; Visit Provider Advanced Practice Midwife
DX: Z34.91 Encounter for supervision of normal pregnancy, unspecified, first trimester (principal); Z11.4 Encounter for screening for human immunodeficiency virus [HIV]; Z11.59 Encounter for screening for other viral diseases; Z01.84 Encounter for antibody response examination
CPT/HCPCS: 36415; 86787; 86803; 86850; 86900; 86901; 87340; 87389; 84443; 85025; 86762; 86780

== ENCOUNTER 2019-11-04 10:37 | Outpatient (REF) | payer MEDICAID, SELFPAY ==
[2019-11-04 11:37] LABS: *AMPHETAMINES SCREEN URINE Negative (Negative); *BARBITURATES SCREEN URINE Negative (Negative); *BENZODIAZEPINES SCREEN URINE Negative (Negative); Cannabinoids THC Negative (Negative); Cocaine Screen,Urine Negative (Negative); METHADONE URINE SCREEN Negative (Negative); OPIATES URINE SCREEN Negative (Negative)
[2019-11-04 11:38] LABS: Tricyclic Antidepressants Negative (Negative)
[2019-11-16 01:53] LABS: Buprenorphine Negative; Norbuprenorphine Negative
== END 2019-11-04 10:57 ==
LOC: LBN 10:37
PROVIDERS: PCP Nurse Practitioner Family; Visit Provider Advanced Practice Midwife
DX: Z34.91 Encounter for supervision of normal pregnancy, unspecified, first trimester (principal)
CPT/HCPCS: 80307; 87086

== ENCOUNTER 2019-12-02 02:02 | Outpatient (CLI) | payer MEDICAID, SELFPAY ==
--- NOTE | 2019-12-02 07:30 | DI.US_ITS ---
EXAM: US OB 2-3 TRIMESTER CLINICAL HISTORY: routine pnc, Z34.90 SUPERVISION NORMAL . TECHNIQUE: Transabdominal obstetrical ultrasound performed. COMPARISON: US US OB 2-3 trimester from 09/16/2018 FINDINGS: Transabdominal obstetrical ultrasound performed. FINDINGS: Number of fetuses: One. position: Cephalic heart rate: 158 bpm. Placental location: Posterior. No evidence of previa. BIOMETRIC DATA: EFW: 192 grms Composite Age: 17 weeks 5 days EDC: 05/06/2020 Heart Rate: 158BPM Amniotic fluid index: Amount of fluid is within normal limits. ANATOMICAL SURVEY: Within normal limits. No abnormalities are identified. IMPRESSION: 1. Single live intrauterine gestation as above. 2. Normal anatomic survey. DATA REPOSITORY:
== END 2019-12-02 02:22 ==
PROVIDERS: PCP Nurse Practitioner Family; Visit Provider Advanced Practice Midwife
DX: Z34.92 Encounter for supervision of normal pregnancy, unspecified, second trimester (principal); Z3A.17 17 weeks gestation of pregnancy
CPT/HCPCS: 76805

== ENCOUNTER 2020-02-12 01:45 | Outpatient (CLI) | payer MEDICAID, SELFPAY ==
[2020-02-12 10:25] LABS: HCT 33.3 % (36.0-46.0); HGB 11.7 g/dL (11.2-15.7); MCH 33.5 pg (27.0-33.0); MCHC 35.1 % (32.0-36.0); MCV 95.4 fL (80-95); MPV 10.4 fL (8.0-11.0); Platelet Count 255 10^3/uL (130-400); RBC 3.49 10^6/uL (3.93-5.22); RDW 11.9 % (11.7-14.6); RDW-SD 41.1 fL; WBC 13.25 10^3/uL (4.4-10.8)
[2020-02-12 10:32] LABS: Glucose,1 Hr (Glucola) 102 mg/dL (80-140)
== END 2020-02-12 02:05 ==
PROVIDERS: Advanced Practice Midwife; PCP Nurse Practitioner Family; Visit Provider Advanced Practice Midwife
DX: Z34.90 Encounter for supervision of normal pregnancy, unspecified, unspecified trimester (principal)
CPT/HCPCS: 36415; 82950; 85027

== ENCOUNTER 2020-04-06 11:46 | Outpatient (REF) | payer MEDICAID, SELFPAY ==
[2020-04-06 15:21] LABS: *AMPHETAMINES SCREEN URINE Negative (Negative); *BARBITURATES SCREEN URINE Negative (Negative); *BENZODIAZEPINES SCREEN URINE Negative (Negative); Cannabinoids THC Negative (Negative); Cocaine Screen,Urine Negative (Negative); METHADONE URINE SCREEN Negative (Negative); OPIATES URINE SCREEN Negative (Negative)
[2020-04-06 15:23] LABS: Tricyclic Antidepressants Negative (Negative)
[2020-04-12 12:01] LABS: Buprenorphine Negative; Norbuprenorphine Negative
== END 2020-04-06 12:06 ==
LOC: LBN 11:46
PROVIDERS: PCP Nurse Practitioner Family; Visit Provider Advanced Practice Midwife
DX: Z34.93 Encounter for supervision of normal pregnancy, unspecified, third trimester (principal)
CPT/HCPCS: 80307; 87081

== ENCOUNTER 2020-05-06 01:02 | Inpatient (IN) | payer MEDICAID, SELFPAY ==
[2020-05-06] VITALS (11 sets, daily range): BP systolic 112–122; BP diastolic 64–72; PULSE 79–87; RESP 16; TEMP 36.6–36.9
[2020-05-06 00:41] LABS: ROM Plus Positive
[2020-05-06 01:34] LABS: HCT 32.7 % (36.0-46.0); HGB 11.2 g/dL (11.2-15.7); MCH 31.8 pg (27.0-33.0); MCHC 34.3 % (32.0-36.0); MCV 92.9 fL (80-95); MPV 10.1 fL (8.0-11.0); Platelet Count 270 10^3/uL (130-400); RBC 3.52 10^6/uL (3.93-5.22); RDW 11.7 % (11.7-14.6); RDW-SD 39.4 fL; WBC 14.69 10^3/uL (4.4-10.8)
--- NOTE | 2020-05-06 07:15 | W.PM.OBHPL1 ---
Date of service: 05/06/20 Time of Service: 07:15 Assessment and Plan Assessment and plan (1) Spontaneous rupture of amniotic membranes: Status: Acute Assessment and plan: Admitted. Sleep was encouraged as Connor is tired. Will monitor FHTs while awake and anticipate . Comfort measures. SVE when appropriate. Consider augmentation of labor when appropriate. Kiersten Melton will be assuming her care at 0800. OB-HPI Labor/Delivery History of Present Illness Reason for Visit: RUPTURED MEMBRANE/LABOR Chief Complaint: Suspected Rupture of Membranes (Connor called at 2240 and reported leaking a small amount of fluid. ) , Associated Signs and Symptoms of Suspected ROM: back ache. SHADIA Calculator Estimated Delivery Date Method Current WG Current Estimate 05/03/20 Ultrasound #1 40w 3d Other Estimates 05/25/20 LMP (Certain) 37w 2d Comments: Connor called at 1730 and reported white discharge, a small amount. She was instructed to monitor this and call if leaking fluid. She called back at 2240 nd reported that it was more watery but still a small amount. On arrival at the center, a ROM plus was performed and was positive. She was having mild contractions at 0100 and was admitted. Neg GBS history. History of Present Expected Delivery Route/Plan - CNM FOB - J[place] recently estranged, but he is involved w/ their daughter. 04/06 - back together. ( not living together). BG - Leigh Ann GBS Negative 36 week uds neg Javy's sister Amanda will be support person in labor Specific Issues/Plan 1. Declined all optional genetic screening declination signed. 2. GERD History - symptoms mild - taking tums PRN. 3. Anxiety History - Connor reports that her mood has been good lately 4. Tandem nursing - stopped at 20 weeks 5. Close parity. Review of Systems Constitutional Constitutional: Reports as per HPI [facility] Medical History Anxiety Asthma Chronic GERD History of fracture of leg age 2 Recent childbirth Family History Mother Hypertension tx w/ meds Diabetes type 2 Father Asthma Hyperlipidemia Maternal Aunt Breast cancer Paternal Aunt Breast cancer Social History Smoking/Tobacco Use Status: Never Smoking risk assessment performed?: Yes Alcohol Intake: former Drug use: Never Substance use type: does not use Do you feel safe at home: Yes Do you feel safe in your relationship?: Yes Female Reproductive History Menstrual Age of Menarche: 12 Duration of menses: 3-5 days control method: patch (unplanned 2` to unable to refill patch. al) History History 1 Para 1 Hx # Term Pregnancies 1 Multiple births 0 Hx # Pregnancies 0 Ectopic pregnancies 0 AB induced 0 Hx Number of Living Children 0 AB spontaneous 0 Past Pregnancies Del. Date GA/Weeks # Outcome Route Wgt Sex Labor Lgth Anesthesia Location Prov Complic 02/19/19 41 No Successful vaginal 8 lb 8 oz Female [facility] [place] Mcdaniels CNM Delivery Date: 02/19/19 Induced for Prolonged ROM, postdates. 1st degree vaginal laceration, repaired. 'Erika Amaro Medstephen Home Medications and Allergies Home Medications Medication Instructions Recorded Confirmed Type acetaminophen [Tylenol] 325 mg PO PRN PRN 02/06/17 05/06/20 History prenat.vits,estelle,hvl-mfjg-ljbbb 1 tab PO DAILY 11/04/19 05/06/20 History Allergies Allergy/AdvReac Type Severity Reaction Status Date / Time shell fish Allergy Intermediate Hives Uncoded 05/06/20 01:53 Exam Physical Exam Vital Signs Reviewed: Yes Notable Details: B.P did not record in the chart was reported at 118/70 Constitutional Constitutional: no acute distress Detailed Labor and Delivery Exam Rosen Score: Cervical Points Exam 0 1 2 3 Dilation Closed 1-2cm 3-4 cm 5-6cm Effacement 0-30% 40-50% 60-70% 80% Consistency Firm Medium Soft Station -3 -2 -1,0 +1,+2 Position Posterior Mid Anterior Amniotic Membrane Status: Ruptured Rupture Method: Spontaneous Amniotic Fluid: Clear Pooling: Equivocal ROM Plus: Positive Contraction Intensity: Mild Fetus A Heart Rate Baseline: 130 Monitor Accelerations: 15 X 15 Monitor Decelerations: None Variability: Moderate (6-25 BPM) Categories: Category I Date of Membrane Rupture: 05/05/20 Time of Membrane Rupture: 17:00 Results Results Group Beta Strep: Negative Blood Type: O+ Rubella Status: Immune Varicella Immunity: Immune Abnormal Lab Findings: Abnormal Labs 05/06/20 01:25 WBC 14.69 H RBC 3.52 L Hct 32.7 L Risk Assessment Risk for Shoulder Dystocia Historical/Initial OB: NEGATIVE FOR: Pelvic Abnormality, Pre- BMI>30, Previous Shoulder Dystocia or Previous Macrosomia 40 Weeks: POSTIVE FOR: Post Dates; NEGATIVE FOR: EFW> 4500 gms or Maternal Weight Gain >40lb Increased Risk?: No Delivery Plan @ 40 wks: 02/13/19 al postdates visit booked. Risk for Pre-Eclampsia Daily Dose ASA Indicated: No Date Initiated/Initials: 11/04/19 al Yes, if one or more: NEGATIVE FOR: Hx Pre-E/Gest HTN, Chronic HTN, Multiple Gestation, Pre-gestational DM, Renal Disease, Systemic Lupus or APA Syndrome Yes, if 2 or more: POSITIVE FOR: Nulliparity; NEGATIVE FOR: Age>= 35 yrs, >10yr btwn pregnancies, BMI>30, ethinicty, Mother/Sister w/ Pre-E or Previous IUGR Risk for Post- Hemorrhage Initial: NEGATIVE FOR: Multiple Gestation, Previous PPH, Known Clotting Deficiency, Grand Multiparity or Anticoagulation At Risk?: No Counseled re: Active Management: Yes Date/Initials: 02/01/31 al Risks Reviewed Risks Reviewed Upon Admission: Yes
--- NOTE | 2020-05-06 09:08 | W.PM.OBNL1 ---
Date of service: 05/06/20 Time of Service: 09:08 Informed Consent Informed Consent: Induction of Labor (Discussed waiting for spontaneoud labor versus misoprostel induction versusu pitocin. Verbal consent for misoprostel given by pt.) Pelvic Exam Dilation: 2 Effacement (%): 80 station: -3 Cervix Position: posterior Consistency: soft BISHOPS Score(Cervical Ripeness Score): 8 Vaginal Exam Presentation: Cephalic ROM Plus: Positive (result recorded at 0020 last night, pt states she thinks her water has been leaking since [id number] yesterday afternoon.) Contractions Monitor Mode: External Fetus A Monitor: External (US) Heart Rate Baseline: 135 Presentation: Cephalic Variability: Moderate (6-25 BPM) Categories: Category I FHR Rhythm: Regular Characteristics: Normal Accelerations: 15 X 15 Decelerations: None Assessment and Plan Assessment and plan (1) Post-dates : Status: Acute Assessment and plan: A: multipara, postdates, suspected though unconfirmed PROM Admission COVID swab pending Low risk for SD or PPH P: Will begin IOL via cervical ripening Informed consent/choice process discussed with pt Misoprostel protocol ordered Dr. Mora available for consult as needed Anticipate Qualifiers: Post-term type: 40-42 weeks gestation Qualified Code(s): O48.0 - Post-term Objective Abnormal lab results 05/06/20 Range/Units 01:25 WBC 14.69 H (4.4-10.8) 10^3/uL RBC 3.52 L (3.93-5.22) 10^6/uL Hct 32.7 L (36.0-46.0) % Temp Pulse Resp BP 98.1 F 84 16 112/69 05/06/20 07:50 05/06/20 07:50 05/06/20 07:50 05/06/20 07:50 Laboratory Results WBC 14.69 10^3/uL (4.4-10.8) H 05/06/20 01:25 RBC 3.52 10^6/uL (3.93-5.22) L 05/06/20 01:25 Hgb 11.2 g/dL (11.2-15.7) 05/06/20 01:25 Hct 32.7 % (36.0-46.0) L 05/06/20 01:25 MCV 92.9 fL (80-95) 05/06/20 01:25 MCH 31.8 pg (27.0-33.0) 05/06/20 01:25 MCHC 34.3 % (32.0-36.0) 05/06/20 01:25 RDW 11.7 % (11.7-14.6) 05/06/20 01:25 Plt Count 270 10^3/uL (130-400) 05/06/20 01:25 MPV 10.1 fL (8.0-11.0) 05/06/20 01:25 Membranes Rupture Positive 05/06/20 00:20 Patient ABO/Rh O Positive 05/06/20 01:25 Antibody Screen Negative 05/06/20 01:25 Vital Signs Reviewed: Yes Objective Narrative Objective Narrative: Assumed care 0800 24 yo @ 40+3 wks GBS neg, Rh+, Rub/Blu Immune Pelvis proven to 8'8 Suspected PROM since yesterday afternoon by pt ROM plus+ swab upon arrival to unit 0020 today Category 1 tracing, mild prodromal sx afebrile and normotensive Subjective Patient Reports: No new Complaints Interval history since last seen: Pt states she got some sleep last night, has been awake since 0700, ate breakfast, feels well, relaxed, occasional contraction but not painful. Vaginal discharge & wetness has not changed much at all since yesterday evening. Interventions Induction Indication: Premature Rupture of Membranes (suspected, unconfirmed) and Post Date , Type of Induction: Misoprostol administration: Oral , Results Hemoglobin/Hematocrit: Hgb 11.2 g/dL (11.2-15.7) 05/06/20 01:25 Hct 32.7 % (36.0-46.0) L 05/06/20 01:25 Abnormal Lab Findings: Abnormal Labs 05/06/20 01:25 WBC 14.69 H RBC 3.52 L Hct 32.7 L
[2020-05-06] MEDS: miSOPROStol 25 MCG TAB PO (09:37)
[2020-05-06] MEDS: miSOPROStol 25 MCG TAB 50 MCG PO ×2 (14:13→18:16)
[2020-05-06 22:04] LABS: COVID-19 RT-PCR UVMMC Result Negative (Negative)
--- NOTE | 2020-05-06 22:13 | W.PM.OBNL1 ---
Date of service: 05/06/20 Time of Service: 22:13 Assessment and Plan Assessment and plan (1) Post-dates : Status: Acute Assessment and plan: A: multipara, IOL via cervical ripening, SROM confirmed, uncertain time P: Expectant management, intermittent auscultation, comfort measures as needed, anticipate Qualifiers: Post-term type: 40-42 weeks gestation Qualified Code(s): O48.0 - Post-term Objective Vital Signs Reviewed: Yes Objective Narrative Objective Narrative: ROM confirmed, clear fluid SVE 4/90% vtx -2, cvx posterior category 1 tracing vss, pt coping well with contractions which are q 2-3 minutes now Subjective Interval history since last seen: Resting well throughout the day, 3rd misoprostel dose given at 1800, increasingly uncomfortable since 1999, large gush of clear fluid @ 2210
[2020-05-07] VITALS (10 sets, daily range): BP systolic 108–139; BP diastolic 62–79; PULSE 68–83; RESP 15–16; TEMP 36.6; O2SAT 98–99
[2020-05-07] MEDS: Methylergonovine 0.2 MG/ML VIAL IM (00:52)
[2020-05-07] MEDS: Acetaminophen 325 MG TAB 650 MG PO ×4 (03:16→19:42)
[2020-05-07] MEDS: Hamamelis Leaf/Glycerin 100 EACH BOX PR (03:16)
[2020-05-07] MEDS: Ibuprofen 600 MG TAB PO ×3 (03:16→15:39)
--- NOTE | 2020-05-07 11:17 | W.OBDELIVERY ---
Date of service: 05/07/20 Time of Service: 01:16 OB Labor/ Delivery Information Baby A Delivery Delivery Method: Spontaneaous Presentation: Cephalic Cephalic Position: Vertex Vertex Position: Right Occipital Anterior Breech Position: N/A Cord Description-Baby A: 3 Vessels, Nuchal Cord, Reduced and Other (left nuchal hand) Amniotic Fluid: Clear Estimated Blood Loss: 350 Delivery Outcome: Liveborn Infant Transferred: Remains with Mother Note: Anterior lip manually reduced after pt began pushing spontaneously and involuntarily, head had descended to +3 and 2nd stage huddle was completed. shortly thereafter of a vigorous female over intact perineum, loose nuchal cord reduced overhead and left hand at baby's face, shoulders came easily and baby to mother's arms immediately. Cord ceased pulsating, clamped and cut by pt's support person, cord blood collected, 10 unit pitocin given IM, placenta slow to fully separate and continuous blood trickle noted, 0.2 mg methergine IM administered and jack placenta followed intact with 3VC. Superficial lac noted at introitus and persisted with bleeding, one stitch vicryl placed which stopped the bleeding and approximated edges well. Nurse noted baby's breath sounds were congested, CNM took baby to warmer for deep COMPENSATION AGENT suction and then returned to mother with improvement noted. Excellent bonding observed. Providers Nurse [employer] Set Up Technician: Kiersten Melton Nurse: Trang Kendall Nurse: Liv Mireles Labor/Delivery Information Number of Babies in Womb: 1 Steroids Given: None Reason Steroids Not Administered: N/A Group Beta Strep: Negative Antibiotics Administered: No Rubella Status: Immune Blood Type: O+ Varicella Immunity: Immune Maternal Complications: None Shoulder Dystocia: No Stages of Labor Onset of Labor Date: 05/06/20 Onset of Labor Time: 22:00 Complete Dilatation Date: 05/07/20 Complete Dilatation Time: 00:38 Labor - Stage 1 Duration: 24 hours and 0 minutes ROM Baby A: 05/07/20 ROM Baby A: 20:00 ROM Total Time- Baby A: hours-1154minutes Infant Delivery Date-Baby A: 05/07/20 Infant Delivery Time-Baby A: 00:46 Labor Stage 2 Duration: 8 minutes Placenta Delivery Date-Baby A: 05/07/20 Placenta Delivery Time-Baby A: 00:54 Labor-Stage 3 Duration: 8 minutes Total Length of Labor-Baby A: 2 hours and 46 minutes Placenta Cultured: No Placenta Status: Delivered Baby A Gender: Female Gestational Status: Term (39-41.6 wks) Gestational Age in Weeks/Days: 40 Weeks and 4 Days weight: 7 lb 13.328 oz Weight Comment: 3553 gms Length-Baby A: 20.5 in Head Circumference-Baby A: 13.27 in Score-1 Minute Interval(Baby A) Heart Rate-1 minute: 100 BPM or Greater Respiratory Effort- 1 minute: Spontaneous/Strong Cry Muscle Tone-1 minute: Minimal Flexion/Extension Reflex Response-1 minute: Prompt Response Color-1 minute: Pallor or Cyanosis Total Score-1 minute: 7 Score-5 Minute Interval(Baby A) Heart Rate- 5 minute: 100 BPM or Greater Respiratory Effort-5 minute: Spontaneous/Strong Cry Muscle Tone-5 minute: Active Movement Reflex Response-5 minute: Prompt Response Color-5 minute: Bluish Hands or Feet Total Score- 5 minute: 9 Procedure Procedures: Cord Blood Collection Interventions Repair of Laceration Type: Perineal , Laceration Extension: N/A . Sponge Count Correct: N/A , Sharp Count Correct: Yes . Laceration Repair Note: 1 stitch vicryl at introitus
--- NOTE | 2020-05-07 11:29 | W.PM.OBPNV1 ---
Date of service: 05/07/20 Time of Service: 11:29 Assessment and Plan Assessment and plan (1) , delivered: Status: Acute Assessment and plan: A: DOD, 10 hr PP, nml recovery thus far P: Pt desires discharge to home [facility], has a toddler waiting for her there. Plan for IUD at 6 wks PP, discussed Mirena vs Paraguard R&B Will discharge when is released Consider boarder status if baby not discharged this afternoon Subjective Subjective Interval history: 10 hours PP, pt reports strong after pains and mild [place]ORNE, pleased with experience, experienced and confident with , plans IUD for BCM.. Patient comments: Pain well controlled, Tolerating diet and Flatus present baby status: Doing well, Nursing well, Rooming in and Strong Bonding Observed feeding status: Exclusively breast feeding Exam Physical Exam Vital signs: Temp Pulse Resp BP Pulse Ox 97.9 F 73 16 111/72 98 05/07/20 10:19 05/07/20 10:19 05/07/20 10:19 05/07/20 10:19 05/07/20 10:19 Vital Signs Reviewed: Yes Constitutional Constitutional: no acute distress, average body habitus and cooperative Breast Exam Bilateral: Breast Exam: Normal and Soft Nipple Exam: Normal Respiratory Exam Respiratory Exam: Normal Cardiovascular Exam Cardiovascular Exam: Normal Abdominal Exam Abdomen: Other (soft and nontender) Fundal Exam Fundus: Below Umbilicus Rectal Exam Rectal Exam: Not Done Exam Perineum: Intact Extremities Exam Extremity Exam: Normal Back/Spine/Pelvis Exam Back Exam: Normal Skin Exam Skin Exam: Normal Neurological Exam Neurological Exam: Normal Psychiatric Exam Psychiatric Exam: Normal
[2020-05-08] MEDS: Acetaminophen 325 MG TAB 650 MG PO (06:32)
[2020-05-08] MEDS: Ibuprofen 600 MG TAB PO (06:32)
[2020-05-08 07:26] LABS: HCT 35.5 % (36.0-46.0); MCH 31.2 pg (27.0-33.0); MCHC 33.8 % (32.0-36.0); MCV 92.2 fL (80-95); MPV 10.2 fL (8.0-11.0); Platelet Count 315 10^3/uL (130-400); RBC 3.85 10^6/uL (3.93-5.22); RDW 11.9 % (11.7-14.6); RDW-SD 39.8 fL; WBC 12.92 10^3/uL (4.4-10.8)
--- NOTE | 2020-05-08 07:35 | W.PM.OBPNV1 ---
Date of service: 05/08/20 Time of Service: 07:36 Assessment and Plan Assessment and plan (1) , delivered: Status: Acute Assessment and plan: A: PPD#1, nml recovery Satisfied with experience P: Will discharge to home today Plan for IUD at 6 wks PP, pt thinking she will choose [facility] F/up at 2 & 6 wks Written instructions reviewed adn given to pt Subjective Subjective Patient comments: No complaints, Pain well controlled, Tolerating diet and Flatus present Patient's Mood: happy [place] baby status: Doing well, Nursing well and Rooming in feeding status: Exclusively breast feeding Exam Physical Exam Vital signs: Temp Pulse Resp BP Pulse Ox 97.9 F 73 16 111/72 98 05/07/20 10:19 05/07/20 10:19 05/07/20 10:19 05/07/20 10:19 05/07/20 10:19 Constitutional Constitutional: no acute distress, average body habitus and cooperative Breast Exam Bilateral: Breast Exam: Normal and Soft Respiratory Exam Respiratory Exam: Normal Cardiovascular Exam Cardiovascular Exam: Normal Abdominal Exam Abdomen: Other (soft and nontender) Fundal Exam Fundus: Below Umbilicus Rectal Exam Rectal Exam: Not Done Exam Perineum: Intact Extremities Exam Extremity Exam: Normal Back/Spine/Pelvis Exam Back Exam: Normal Skin Exam Skin Exam: Normal Neurological Exam Neurological Exam: Normal Psychiatric Exam Psychiatric Exam: Normal Results Hemoglobin/Hematocrit: Hgb 12.0 g/dL (11.2-15.7) 05/08/20 07:15 Hct 35.5 % (36.0-46.0) L 05/08/20 07:15 Abnormal Lab Findings: Abnormal Labs 05/06/20 05/08/20 01:25 07:15 WBC 14.69 H 12.92 H RBC 3.52 L 3.85 L Hct 32.7 L 35.5 L
--- NOTE | 2020-05-08 07:42 | W.PM.OBDISCH ---
Date of service: 05/08/20 Time of Service: 07:42 DS: Diagnosis Discharge Diagnosis (1) , delivered: Status: Acute Discharge Plan Disposition Patient Disposition: HOME Condition: Good Discharge Details Reason For Visit: RUPTURED MEMBRANES/LABOR Admit Date/Time: 05/06/20 01:02 Admit Provider: Erika Meng Attending Provider: Erika Meng Primary Care Provider: Jv Boo Hospital Course Hospital Course: IOL via cervical ripening, and nml course Home Meds and New Rx's Prescriptions: No Action prenat.vits,estelle,gdb-[id number]-smukc Tablet 1 tab PO DAILY RF: 0 acetaminophen [Tylenol] 325 MG tablet 325 mg PO PRN PRNRF: 0 Discharge Instructions Additional Instructions: Please call [facility] at [phone] to schedule a 2 week telehealth visit and an in-person 6 week check and IUD Kyleena insertion (1 hr appointment) with your midwives. Stand Alone Forms: BC Instructions, NB [place] Instructions, BC Post Vaginal Deliver Activity:: Activity as Tolerated Equipment/Supplies:: No Equipment Needed Diet:: Normal Diet Discharge Orders Discharge Orders: Discharge Order (Routine); Ordered 05/08/20 Ordered By: Kiersten Melton OB:DS Summary Summary Vaginal Delivery Method: Spontaneaous Episiotomy Description: Midline Laceration Description: Perineal Laceration Extension: N/A Contraception Discussed Contraception Discussed: Yes Contraceptive Plan: IUD, [place] Infant Gender-Baby A: Female weight: 7 lb 13.328 oz Status at Discharge Functional status at discharge: independent ambulation Overall status at discharge: patient is progressing back to baseline Mental Status: mental status grossly normal Speech and Movement: speech and movement normal and speech clear Mood: congruent mood Affect: normal affect Exam Physical Exam Vital signs: Temp Pulse Resp BP Pulse Ox 97.9 F 73 16 111/72 98 05/07/20 10:19 05/07/20 10:19 05/07/20 10:19 05/07/20 10:19 05/07/20 10:19 Constitutional Constitutional: no acute distress, average body habitus and cooperative Breast Exam Bilateral: Breast Exam: Normal and Soft Respiratory Exam Respiratory Exam: Normal Cardiovascular Exam Cardiovascular Exam: Normal Abdominal Exam Abdomen: Other (soft and nontender) Fundal Exam Fundus: Below Umbilicus Rectal Exam Rectal Exam: Not Done Exam Perineum: Intact Extremities Exam Extremity Exam: Normal Back/Spine/Pelvis Exam Back Exam: Normal Skin Exam Skin Exam: Normal Neurological Exam Neurological Exam: Normal Psychiatric Exam Psychiatric Exam: Normal [facility] Medical History (Updated 05/07/20 @ 11:32 by Kiersten Melton) Anxiety Asthma Chronic GERD History of fracture of leg age 2 Oral contraception initial prescription 22 yo G1 8.0 week by LMP and 8.0 week US SHADIA 02/13/19 vitamins schedule initial OB visit Recent childbirth Family History Mother Hypertension tx w/ meds Diabetes type 2 Father Asthma Hyperlipidemia Maternal Aunt Breast cancer Paternal Aunt Breast cancer Social History Smoking/Tobacco Use Status: Never Smoking risk assessment performed?: Yes Alcohol Intake: former Drug use: Never Substance use type: does not use Do you feel safe at home: Yes Do you feel safe in your relationship?: Yes Female Reproductive History Menstrual Age of Menarche: 12 Duration of menses: 3-5 days control method: patch (unplanned 2` to unable to refill patch. al) History History 1 Para 1 Hx # Term Pregnancies 1 Multiple births 0 Hx # Pregnancies 0 Ectopic pregnancies 0 AB induced 0 Hx Number of Living Children 0 AB spontaneous 0 Past Pregnancies Del. Date GA/Weeks # Outcome Route Wgt Sex Labor Lgth Anesthesia Location Prov Complic 02/19/19 41 No Successful vaginal 8 lb 8 oz Female regional [facility] Mcdaniels CNM Delivery Date: 02/19/19 Induced for Prolonged ROM, postdates. 1st degree vaginal laceration, repaired. 'Erika Amaro DS: Data Vitals/I&O Vitals and I&O: Vital Signs Temperature 97.9 F 05/07/20 10:19 Pulse 73 05/07/20 10:19 Pulse Rhythm Regular 05/07/20 19:40 Respiratory Rate 16 05/07/20 10:19 Blood Pressure 111/72 05/07/20 10:19 Blood Pressure Mean 85 05/07/20 10:19 Pulse Oximetry 98 05/07/20 10:19 Intake & Output 05/07/20 05/07/20 05/08/20 11:59 23:59 11:59 Output Total 700 / 1000 300 / 1000 Balance -700 / -1000 -300 / -1000 Output: Urine 700 / 1000 300 / 1000 Other: Urine Color Light Aye Pale Data Completed and Pending Labs on day of discharge: Labs from last 24 hours 05/08/20 07:15 WBC 12.92 H RBC 3.85 L Hgb 12.0 Hct 35.5 L MCV 92.2 MCH 31.2 MCHC 33.8 RDW 11.9 Plt Count 315 MPV 10.2
[2020-05-08 08:42] VITALS: BP 129/84; PULSE 88; RESP 16; TEMP 36.8; O2SAT 99
--- NOTE | 2020-05-09 13:42 | W.OBNST ---
Date of service: 05/06/20 Time of Service: 00:30 NST Evaluation Reason for NST Reasons for Nonstress Test: OTHER, SEE COMMENT Reason for NST Other: Labor Gestational Age Gestational Age in Weeks and Days: 40 Weeks and 3Days Test and Monitor Explained Test/Monitor Explained: Test Explained, Monitor Explained and Patient Verbalized Understanding Vital Signs Blood Pressure: 112/69 Pulse: 84 Temperature: 98.1 F NST Information Date on Monitor: 05/06/20 Time on Monitor: 07:40 Date off Monitor: 05/06/20 Time off Monitor: 08:20 Total Time on Monitor: 40 NST Interventions: PO Hydration Contraction Frequency: Occasional NST Evaluation Patient States Movement: Present FHR Baseline: 120 Variability: Moderate 6-25 bpm Accelerations: 15x15 Decelerations: None NST Results: Reactive Note NST Note Note: admitted with SROM at term NST Reviewed and Verified by: Erika Meng
[2020-05-09 13:43] VITALS: BP 112/69; PULSE 84; TEMP 36.7
== END 2020-05-08 13:10 | disposition home or self-care (01) | DRG 807 ==
LOC: OBS 01:11 → BCD 12:47
PROVIDERS: Advanced Practice Midwife; Admitting Provider Advanced Practice Midwife; PCP Nurse Practitioner Family; Visit Provider Advanced Practice Midwife
DX: O70.0 First degree perineal laceration during delivery (principal); Z37.0 Single live birth; O48.0 Post-term pregnancy; Z11.59 Encounter for screening for other viral diseases; Z3A.40 40 weeks gestation of pregnancy; Z67.40 Type O blood, Rh positive
CPT/HCPCS: 36415; 59025; 84112; 85027; 86850; 86900; 86901; U0003; G0378; J2210; J3490

== ENCOUNTER 2020-07-27 21:11 | Outpatient (REF) | payer MEDICAID, SELFPAY | END 2020-07-27 21:12 | disposition home or self-care (01) | LOC: NCHCN 21:11 | PROVIDERS: PCP Nurse Practitioner Family; Visit Provider Advanced Practice Midwife | DX: N89.8 Other specified noninflammatory disorders of vagina (principal); Z97.5 Presence of (intrauterine) contraceptive device | CPT/HCPCS: 87480; 87510; 87660 ==

== ENCOUNTER 2021-03-14 14:12 | Emergency (ER) | payer MEDICAID, SELFPAY ==
[2021-03-14 14:31] VITALS: BP 143/89; PULSE 97; RESP 20; TEMP 36.8; O2SAT 100
--- NOTE | 2021-03-14 15:18 | ED.GENADUL_ITS ---
Discharge Plan Disposition Patient Disposition: HOME Condition: Stable Discharge Details Clinical Impression: Laceration of left index finger Primary Care Provider: Jv Boo ED Provider: Ofelia Adame Home Meds and New Rx's Prescriptions: No Action Kyleena 17.5 mcg/24 hrs (5 yrs) 19.5 mg intrauterine device 1 device intrauterine ONCE RF: 0 acetaminophen [Tylenol] 325 MG tablet 325 mg PO PRN PRNRF: 0 Discharge Instructions Instructions: Finger Laceration (ED) Additional Instructions: Please leave Surgicel dressing in place for the first 24 to 48 hours. After 2 days you may gently soak off the dressing with water. Return for any signs of infection including increased redness, swelling or red streaks. Return for bleeding which has soaked through the dressing prior to removal of the dressing. After 3 to 4 days a scab should form. Keep clean and dry and covered while at work. Stand Alone Forms: Work Release Referrals: Jv Boo, ACADEMIC DIRECTOR [Primary Care Provider] - Discharge Data Discharge Date/Time-TO BE ENTERED AT DEPARTURE: 03/14/21 16:57 Medical Decision Making 25-year-old female presents to the ER chief complaint of left index finger laceration which occurred approximately an hour prior to arrival. She was cutting calles and sliced the medial tip of her finger off. Last tetanus shot was 2019. Digital block performed as noted in procedure note above. Surgicel TXA dressing applied with tube gauze. Instructed patient on home care. Instructed to remove dressing in 2 to 3 days. Discuss strict return instructions. Instructed to keep clean and dry return for any signs of infection. HPI General Mode of arrival: ambulatory . Date/Time Provider Initiated Documentation: 03/14/21 14:35 . Limitations to Documentation: no limitations . Information obtained by: patient . HPI Narrative: 25-year-old female presents to the ER chief complaint of left index finger laceration which occurred a pproximately an hour prior to arrival. She was cutting calles and sliced the medial tip of her finger off. Last tetanus shot was 2019. Related Data Home Medications Medication Instructions Recorded Confirmed acetaminophen [Tylenol] 325 mg PO PRN PRN 02/06/17 03/14/21 levonorgestrel 1 device INTRAUTERINE ONCE 06/15/20 03/14/21 Allergies Allergy/AdvReac Type Severity Reaction Status Date / Time shell fish Allergy Intermediate Hives Uncoded 03/14/21 14:34 General Stated Complaint: Laceration BRIAN: 3 PFS Medical History (Updated 03/14/21 @ 16:40 by Ofelia Adame) Anxiety Asthma Chronic GERD History of fracture of leg age 2 Oral contraception initial prescription Post-dates 22 yo G1 8.0 week by LMP and 8.0 week US SHADIA 02/13/19 vitamins schedule initial OB visit Presence of IUD Recent childbirth Spontaneous rupture of amniotic membranes Family History Mother Hypertension tx w/ meds Diabetes type 2 Father Asthma Hyperlipidemia Maternal Aunt Breast cancer Paternal Aunt Breast cancer Social History Smoking/Tobacco Use Status: Never Smoking risk assessment performed?: Yes Alcohol Intake: former Drug use: Never Substance use type: does not use Do you feel safe at home: Yes Do you feel safe in your relationship?: Yes Female Reproductive History Menstrual Age of Menarche: 12 Duration of menses: 3-5 days control method: patch (unplanned 2` to unable to refill patch. al) History History 3 Para 2 Hx # Term Pregnancies 2 Multiple births 0 Hx # Pregnancies 0 Ectopic pregnancies 0 AB induced 0 Hx Number of Living Children 2 AB spontaneous 0 Past Pregnancies Del. Date GA/Weeks # Outcome Route Wgt Sex Labor Lgth Anesthes ia Location [facility] 02/19/19 41 No Successful vaginal 3855.535 g Female [facility] Wero Mcdaniels CNM 05/07/20 40 No Successful vaginal 3543.69 g Female 2hrs 46 min Angie Delivery Date: 02/19/19 Induced for Prolonged ROM, postdates. 1st degree vaginal laceration, repaired. 'Erika Amaro Delivery Date: 05/07/20 No notes to display Exam Extrem Left upper extremity: hand Details: neurosensory exam normal, normal ROM of fingers and laceration (noted below) Hand/finger images: 1. Amputated partial tip of finger, no suturable laceration noted. Course Vital Signs Vital signs: Vital Signs Temperature 36.8 C 03/14/21 14:31 Pulse 97 H 03/14/21 14:31 Respiratory Rate 20 03/14/21 14:31 Blood Pressure 143/89 H 10/12/21 14:31 Pulse Oximetry 100 03/14/21 14:31 Temperature 36.8 C 03/14/21 14:31 Temperature Source Tympanic 03/14/21 14:31 Pulse 97 H 03/14/21 14:31 Respiratory Rate 20 03/14/21 14:31 Blood Pressure 143/89 H 03/14/21 14:31 Pulse Oximetry 100 03/14/21 14:31 Oxygen Delivery Method Room Air 03/14/21 14:31 Oxygen Flow Rate 0 03/14/21 14:31 Pain Level 10 03/14/21 14:31 Procedures Laceration Laceration 1: Site: hand Side (If applicable): left Size (cm): 1 Description: clean (Avulsed tip of finger) Depth: involves muscle layer Local Anesthetic: Lidocaine 1% and Bupivicaine 0.5% Pre-repair: wound explored and irrigated extensively Skin layer closed with: other (Bleeding controlled with Surgicel dressing and TXA topical) Size (cm): other (Dressing applied and tube gauze dressing applied. Discussed strict return instructions. Bleeding controlled at the time) Nerve Block Nerve Block 1: Time out performed: No Local Anesthetic: Lidocaine 1% and Bupivicaine 0.5% Amount of anesthesia used (mL): 4 Side: left Nerve Blocks: digital (4 sided ring block) Procedure Successful: Yes Patient Tolerated Procedure: well and no complications Complications: none
== END 2021-03-14 16:57 | disposition home or self-care (01) ==
PROVIDERS: Emergency Provider Registered Nurse Emergency; PCP Nurse Practitioner Family
DX: S61.211A Laceration without foreign body of left index finger without damage to nail, initial encounter (principal); W26.0XXA Contact with knife, initial encounter; Y93.G1 Activity, food preparation and clean up
CPT/HCPCS: 99282

== ENCOUNTER 2022-04-17 12:32 | Outpatient (REF) | payer MEDICAID, SELFPAY ==
[2022-04-19 15:24] LABS: GC Result Negative (Negative)
[2022-04-19 16:24] LABS: Chlamydia Result Positive (Negative)
== END 2022-04-17 12:33 | disposition home or self-care (01) ==
LOC: LBN 12:32
PROVIDERS: Visit Provider Physician Assistant
DX: A64 Unspecified sexually transmitted disease (principal); Z11.3 Encounter for screening for infections with a predominantly sexual mode of transmission
CPT/HCPCS: 87491; 87591; 87480; 87510; 87660

== ENCOUNTER 2022-06-04 08:00 | Outpatient (REF) | payer MEDICAID, SELFPAY | END 2022-06-04 08:01 | LOC: LBN 08:00 | PROVIDERS: Visit Provider Physician Assistant | DX: L08.82 Omphalitis not of newborn (principal); L02.216 Cutaneous abscess of umbilicus | CPT/HCPCS: 87070; 87075; 87205 ==

== ENCOUNTER 2022-07-16 17:04 | Outpatient (REF) | payer MEDICAID, SELFPAY ==
--- NOTE | 2022-07-16 16:05 | PAPFT_PTH ---
PATIENT: Connor Flores LOC: [facility] U#:[id number] AGE/SX: 26/F ROOM: RE07/16/[address]: [place] : 1995 BED: DIS: 07/16/2022 SPEC #: [id number] RECD: 07/16/22 18:04 STATUS: PAUL REQ #: [id number] YESSICA: 07/16/22 16:[address]: [place] DEPT: [facility] Cytology RECD BY: Valeria Monge Tissues: 1 - CX/ENDOCX FOR PAP SMEARS Procedures: PAP THIN PREP/UVM Screening Comments: [id number]
[2022-07-16 19:05] LABS: Bilirubin Negative (Negative); Blood Small (Negative); Clarity Clear (Clear); Glucose Negative (Negative); Ketones Negative (Negative); Leukocyte Esterase Negative (Negative); Nitrite Negative (Negative); Specific Gravity >= 1.030 (1.005-1.025); Urobilinogen 0.2 EU/dL (Up TO 0.2)
[2022-07-16 19:08] LABS: ALT 41 U/L (14-59); AST 20 U/L (15-37); Albumin 4.1 g/dL (3.4-5.0); Alkaline Phosphatase 68 U/L (46-116); Bilirubin, Direct 0.1 mg/dL (0.0-0.2); Bilirubin, Total 0.2 mg/dL (0.2-1.0); Total Protein 7.2 g/dL (6.4-8.2)
[2022-07-16 19:10] LABS: Bacteria Negative HPF (Negative); C & S Indicated? No; Casts Negative LPF (Negative); Crystals Negative HPF (Negative); Epithelial Cells Rare HPF (Negative); Mucus Negative (Negative); Other Cells Negative (Negative); WBC 0-2 HPF (0-5)
== END 2022-07-16 17:05 | disposition home or self-care (01) ==
LOC: NCHCN 17:04
PROVIDERS: Visit Provider Family Medicine
DX: R82.2 Biliuria (principal); Z12.4 Encounter for screening for malignant neoplasm of cervix; R82.998 Other abnormal findings in urine
CPT/HCPCS: 80076; 88142; 81003; 81015

== ENCOUNTER 2022-12-05 17:28 | Outpatient (REF) | payer MEDICAID, SELFPAY ==
[2022-12-05 20:06] LABS: Bilirubin Negative (Negative); Blood Moderate (Negative); Clarity Clear (Clear); Glucose Negative (Negative); Ketones Negative (Negative); Leukocyte Esterase Negative (Negative); Nitrite Negative (Negative); Specific Gravity >= 1.030 (1.005-1.025); Urobilinogen 0.2 mg/dL (Up to 0.2); pH 5.5 (5-8)
[2022-12-05 20:11] LABS: Anion Gap 11.3 mmol/L (3-11); BUN 16 mg/dL (7-18); CO2 25.7 mmol/L (21.0-32.0); CREATININE 0.7 mg/dL (0.55-1.02); Calcium 9.4 mg/dL (8.5-10.1); Chloride 103 mmol/L (98-107); Estimated GFR 120.74 (mL/min/1.73m2); Glucose 92 mg/dL (74-106); Sodium 140 mmol/L (136-145)
[2022-12-05 20:20] LABS: Bacteria Negative HPF (Negative); C & S Indicated? No; Casts Negative LPF (Negative); Crystals Negative HPF (Negative); Epithelial Cells Few HPF (Negative); Mucus Negative (Negative)
== END 2022-12-05 17:29 | disposition home or self-care (01) ==
LOC: NCHCN 17:28
PROVIDERS: Visit Provider Family Medicine
DX: L73.2 Hidradenitis suppurativa (principal); Z51.81 Encounter for therapeutic drug level monitoring; Z87.448 Personal history of other diseases of urinary system
CPT/HCPCS: 80048; 81003; 81015

== ENCOUNTER 2022-12-10 17:14 | Emergency (ER) | payer MEDICAID, SELFPAY ==
[2022-12-10] VITALS (16 sets, daily range): BP systolic 128–144; BP diastolic 74–89; PULSE 114–142; RESP 15–27; TEMP 38.5; O2SAT 97–100
--- NOTE | 2022-12-10 17:48 | ED.GENADUL_ITS ---
Discharge Plan Disposition Patient Disposition: Home Condition: Stable Discharge Details Clinical Impression: Pharyngitis Primary Care Provider: [place] [facility] ED Provider: Markos Bowens Home Meds and New Rx's Prescriptions: New amoxicillin-pot clavulanate 875-125 mg tablet 1 tab PO BID Qty: 14 0RF Continued mupirocin 2 % ointment 1 applic topical TID Qty: 15 0RF clotrimazole 1 % cream 1 applic topical BID Qty: 15 0RF Kyleena 17.5 mcg/24 hrs (5 yrs) 19.5 mg intrauterine device 1 device intrauterine ONCE Rx Instructions: as a single dose albuterol sulfate [Ventolin HFA] 90 mcg/actuation HFA aerosol inhaler 2 puff INHALATION PRN PRN Patient Comments: INHALE 1 TO 2 PUFFS BY MOUTH EVERY 4 TO 6 HOURS NEEDED spironolactone 50 mg tablet 50 mg PO DAILY Patient Comments: TAKE 1 TABLET BY MOUTH EVERY DAY acetaminophen [Tylenol] 325 MG tablet 325 mg PO PRN PRN Discharge Instructions Instructions: Pharyngitis (ED) Additional Instructions: if pain is not improving within a week follow up with your primary care provider if you feel more ill, can't swallow liquids or have severe worsening pain return to the emergency department Medical Decision Making 26 yo female who comes in with one day of sore throat, left ear pain and subjective fevers. She denies cough, rashes, chest pain, abdominal pain, neck stiffness, changes in voice, headaches. She has had some body aches. She denies smoking, alcohol use or drug use. She arrives tachycardic and febrile, is caox4 speaking in full sentences in no distress. She has erythema of the posterior pharynx with midline uvula, no submandibular swelling, no pain over the hyoid and no restricted neck movements. She has normal bilateral tm and external auditory canal. Clear lungs, no murmurs, soft abdomen. Suspect viral phyarngitis vs strep vs covid vs flu, no findings to suggest retropharyngeal abscess, epiglotitis or peritonsilar abscess. She does appear dehydrated, will obtain cbc, cmp, procalcitonin, strep and fluvid and administer IV fluids and toradol and reassess. pt feels better, has been swallowing liquids without difficulty, still has midline uvula, no restricted neck movements or pain over the hyoid. WBC of 20 otherwise bengin labs. Discussed results with pt and given her erythema of the posterior pharynx will start her on augmentin, strep culture pending. Given exam findings do not feel ct imaging of her neck indicated a this time, she will f/u with pcp if not improving within a week, return precautions given Differential Diagnosis Differential Diagnosis: covid, flu, mono, strep Lab Data Lab results reviewed: Yes I reviewed the patient's lab results. HPI General Mode of arrival: ambulatory . Date/Time Provider Initiated Documentation: 12/10/22 17:43 . Limitations to Documentation: no limitations . Information obtained by: patient . History of Present Illness 26 year old F presents to the emergency department with the chief complaint of sore throat, described as moderate, Patient started experiencing this day(s) (1) and it has been constant. No relieving factors improve symptom(s), No exacerbating factors reported . Patient notes fever/chills. Related Data Home Medications Medication Instructions Recorded Confirmed acetaminophen 325 mg tablet 325 mg PO PRN PRN 02/06/17 12/10/22 (Tylenol) levonorgestrel 17.5 mcg/24 hrs 1 device intrauterine ONCE 06/15/20 12/10/22 (5yrs) 19.5mg intrauterine device (Kyleena) clotrimazole 1 % topical cream 1 applic topical BID #15 grams 06/04/22 12/10/22 mupirocin 2 % topical ointment 1 applic topical TID #15 grams 06/04/22 12/10/22 albuterol sulfate 90 mcg/actuation 2 puff inhalation PRN PRN 12/10/22 12/10/22 aerosol inhaler (Ventolin HFA) amoxicillin 875 mg-potassium 1 tab PO BID #14 tabs 12/10/22 clavulanate 125 mg tablet spironolactone 50 mg tablet 50 mg PO DAILY 12/10/22 12/10/22 Previous Rx's Medication Instructions Recorded clotrimazole 1 % topical cream 1 applic topical BID #15 grams 06/04/22 mupirocin 2 % topical ointment 1 applic topical TID #15 grams 06/04/22 amoxicillin 875 mg-potassium 1 tab PO BID #14 tabs 12/10/22 clavulanate 125 mg tablet Allergies Allergy/AdvReac Type Severity Reaction Status Date / Time shell fish Allergy Intermediate Hives Uncoded 12/10/22 17:29 General Stated Complaint: GenMedical BRIAN: 3 Review of Systems All systems reviewed & are unremarkable except as noted in HPI and below Constitutional Constitutional: Reports fever(s) and Denies weakness ENT Ears, Nose, Mouth, and Throat: Denies change in voice Cardiovascular Cardiovascular: Denies chest pain and Denies dyspnea Respiratory Respiratory: Denies cough and Denies dyspnea Gastrointestinal Gastrointestinal: Denies abdominal pain, Denies nausea and Denies vomiting Integumentary/Breasts Skin/Breast: Denies rash Neurologic Neurologic: Denies weakness Psychiatric Psychiatric: Denies depression PFSH All Active Problems (Updated 12/10/22 @ 19:50 by Markos Bowens MD) Pharyngitis (Acute) Laceration of left index finger (Acute) Vaginal discharge (Acute) Presence of IUD (Acute) Encounter for insertion of intrauterine contraceptive device (IUD) (Acute) care and examination (Acute) Spontaneous rupture of amniotic membranes (Acute) Post-dates (Acute) , delivered (Acute) Nausea and vomiting (Acute) Encounter for visit (Acute) Contact dermatitis (Acute) Chronic GERD (Acute) Anxiety (Chronic) Medical History Asthma History of fracture of leg age 2 Oral contraception initial prescription 22 yo G1 8.0 week by LMP and 8.0 week US SHADIA 02/13/19 vitamins schedule initial OB visit Recent childbirth Family History Mother Hypertension tx w/ meds Diabetes type 2 Father Asthma Hyperlipidemia Maternal Aunt Breast cancer Paternal Aunt Breast cancer Social History Smoking/Tobacco Use Status: Never Smoking risk assessment performed?: Yes Alcohol Intake: former Drug use: Never Substance use type: does not use Do you feel safe at home: Yes Do you feel safe in your relationship?: Yes Female Reproductive History Menstrual Age of Menarche: 12 Duration of menses: 3-5 days control method: patch (unplanned 2` to unable to refill patch. al) History History 3 Para 2 Hx # Term Pregnancies 2 Multiple births 0 Hx # Pregnancies 0 Ectopic pregnancies 0 AB induced 0 Hx Number of Living Children 2 AB spontaneous 0 Past Pregnancies Del. Date GA/Weeks # Preg Succ Route Wgt Sex Labor Lgth Anesth esia Location Prov Complic 02/19/19 41 No vaginal 3855.535 g Female regional [facility] [facility] 05/07/20 40 No vaginal 3543.69 g Female 2hrs 46 min Angie Delivery Date: 02/19/19 Last Updated by: Erika Meng CNM Induced for Prolonged ROM, postdates. 1st degree vaginal laceration, repaired. 'Kenyatta Exam Const General: no acute distress Orientation: alert HENMT Head: normal to inspection Ears: external ears normal General nose exam: external nose normal Eyes General: appearance normal, both eyes and all related structures Neck Neck: normal visual inspection Resp Effort & Inspection: normal respiratory effort and able to speak in complete sentences Cardio Jugular venous pressure: no JVD Rate: tachycardic Skin General skin exam: no rashes or lesions noted Neuro General: patient alert and patient oriented x3 Extrem General: normal to inspection Psych Mental Status: mental status grossly normal Course Vital Signs Vital signs: Vital Signs Temperature 38.5 C H 12/10/22 17:24 Pulse 142 H 12/10/22 17:24 Respiratory Rate 18 12/10/22 17:24 Blood Pressure 144/89 H 12/10/22 17:24 Pulse Oximetry 98 12/10/22 17:24 Temperature 38.5 C H 12/10/22 17:24 Temperature Source Skin 12/10/22 17:24 Pulse 142 H 12/10/22 17:24 Respiratory Rate 18 12/10/22 17:24 Blood Pressure 144/89 H 12/10/22 17:24 Blood Pressure Position Sitting 12/10/22 17:24 Pulse Oximetry 98 12/10/22 17:24 Oxygen Delivery Method Room Air 12/10/22 17:24 Oxygen Flow Rate 0 12/10/22 17:24 Pain Level 8 12/10/22 17:24
[2022-12-10 18:12] LABS: ALT 26 U/L (14-59); AST 20 U/L (15-37); Albumin 4.3 g/dL (3.4-5.0); Alkaline Phosphatase 77 U/L (46-116); BUN 6 mg/dL (7-18); Bilirubin, Total 0.5 mg/dL (0.2-1.0); CREATININE 0.6 mg/dL (0.55-1.02); Chloride 99 mmol/L (98-107); Estimated GFR 125.31 (mL/min/1.73m2); Glucose 130 mg/dL (74-106); Lipase 30 U/L (16-77); Magnesium 1.9 mg/dL (1.8-2.4); Potassium 3.7 mmol/L (3.5-5.1); Sodium 136 mmol/L (136-145); Total Protein 8.4 g/dL (6.4-8.2)
[2022-12-10 18:16] LABS: Abs Immature Grans 0.17 10^3/uL (0.0-0.06); Absolute Monocyte Count 1.08 10^3/uL (0.1-0.8); Basophils % 0.1; HCT 40.4 % (36.0-46.0); HGB 14.2 g/dL (11.2-15.7); Immature Grans % 0.8; Lymphocytes % 5.9; MCH 32.1 pg (27.0-33.0); MCHC 35.1 % (32.0-36.0); MCV 91 fL (80-95); MPV 10.2 fL (8.0-11.0); Monocytes % 5.2; Platelet Count 314 10^3/uL (130-400); RBC 4.43 10^6/uL (3.93-5.22); RDW 11.5 % (11.7-14.6); RDW-SD 38.8 fL; WBC 20.79 10^3/uL (4.4-10.8)
[2022-12-10 18:17] LABS: Absolute Basophil Count 0.02 10^3/uL (0.0-0.2); Absolute Lymphocyte Count 1.23 10^3/uL (1.2-3.4)
[2022-12-10] MEDS: Ketorolac 15 MG/ML VIAL IVP (18:18)
[2022-12-10] MEDS: Normal Saline 1,000 ML 1000 ML IV (18:18)
[2022-12-10 18:24] LABS: Mono Screening Negative (Negative)
[2022-12-10 18:27] LABS: Procalcitonin < 0.1 ng/mL
[2022-12-10 18:33] LABS: HCG Qual (Serum) Negative
[2022-12-10 18:52] LABS: COVID-19 PCR Negative (Negative); Influenza A PCR Negative (Negative); Influenza B PCR Negative (Negative); RSV PCR Negative (Negative)
[2022-12-10 18:54] LABS: Source Nasopharynx
[2022-12-10] MEDS: Amoxicillin 875/Clav. 125 TAB PO (19:50)
[2022-12-10] MEDS: Dexamethasone 10 MG/ML VIAL IVP (19:50)
== END 2022-12-10 20:01 | disposition home or self-care (01) ==
PROVIDERS: Emergency Provider Emergency Medicine; PCP Family Medicine
DX: J02.9 Acute pharyngitis, unspecified (principal); H92.02 Otalgia, left ear; E86.0 Dehydration
CPT/HCPCS: 80053; 83690; 84145; 87040; 87637; 96361; 96374; 96375; 99284; 81003; 83735; 84703; 85025; 86308; 87081; 99283; J1100; J1885

== ENCOUNTER 2022-12-21 19:35 | Emergency (ER) | payer MEDICAID, SELFPAY ==
[2022-12-21] VITALS (11 sets, daily range): BP systolic 122–132; BP diastolic 63–75; PULSE 95–112; RESP 20; TEMP 37.5–38.1; O2SAT 96–100
--- NOTE | 2022-12-21 20:07 | ED.GENADUL_ITS ---
Discharge Plan Disposition Patient Disposition: Home Condition: Good Discharge Details Clinical Impression: Pharyngitis Primary Care Provider: [facility] Provider: Cat May Home Meds and New Rx's Prescriptions: Continued mupirocin 2 % ointment 1 applic topical TID Qty: 15 0RF clotrimazole 1 % cream 1 applic topical BID Qty: 15 0RF Kyleena 17.5 mcg/24 hrs (5 yrs) 19.5 mg intrauterine device 1 device intrauterine ONCE Rx Instructions: as a single dose albuterol sulfate [Ventolin HFA] 90 mcg/actuation HFA aerosol inhaler 2 puff INHALATION PRN PRN Patient Comments: INHALE 1 TO 2 PUFFS BY MOUTH EVERY 4 TO 6 HOURS NEEDED spironolactone 50 mg tablet 50 mg PO DAILY Patient Comments: TAKE 1 TABLET BY MOUTH EVERY DAY amoxicillin-pot clavulanate 875-125 mg tablet 1 tab PO BID Qty: 14 0RF albuterol sulfate [Ventolin HFA] 90 mcg/actuation HFA aerosol inhaler INHALATION Patient Comments: INHALE 1 TO 2 PUFFS BY MOUTH EVERY FOUR TO SIX HOURS NEEDED acetaminophen [Tylenol] 325 MG tablet 325 mg PO PRN PRN Discharge Instructions Instructions: Pharyngitis (ED) Additional Instructions: Take the second dose of dexamethasone tomorrow evening. Take tylenol and ibuprofen over the counter- follow the directions on the bottle. Call your primary care doctor on Saturday to schedule an appointment for early next week to follow up on your visit here. Return to the emergency department for new or worsening symptoms including inability to swallow fluids, fever that does not respond to home medications, new/different/worse throat or ear pain, or if you have any other concerns. Referrals: [facility] [Primary Care Provider] - Medical Decision Making 26yo F with hidranitis suppurativa on spironloactone, no immunosuppressive medications, presenting for fever and sore throat. Seen in this ED last week for the same on 12/10 and discharged on course of amoxicillin; symptoms persist. [facility] medical records including labs and note from ED visit 12/10/22 reviewed. At that time had pharygnitis, LEFT ear pain, dced home on 7 day course of amoxicillin. Total borderline febrile at 38.1 and tachycardiac to 110's. No acute distress, no respiratory distress, speaking in full sentences. Reports decreased PO 2/t to throat pain as well as now RIGHT ear pain. Denies other infectious symptoms. Non-toxic appearing, suspect viral etiology, low suspicion for serious bacterial infection/sepsis. No indication of tonsilar/peritonsilar abscess or deep space infection of the neck on exam; would not pursue further with CT or other imaging. No otitis media. Given decreased PO and persistence of symptoms, will eval further with labs and give IVFB. Labs below, CBC and CMP with no significant changes from prior 12/10; again with leukocytosis to low 20's with neutrophilia, no significant electrolyte abnormalities. Strep screen and mono negative. Would not repeat antibiotics at this time; will treat symptomatically with tylenol/ibuprofen/dexamethasone. On reassessment patient reports feeling somewhat improved, tolerating PO fluids, remains tachyardiac to low 100's. Given additional 1L IVFB with improvement in HR to low 90's. Subseqently able to take good amount of PO fluids with enthusiasm and reports feeling better. With well appearance and reassuring vital signs, appropriate for symptomatic treatment at home and PCP followup. Given repeat dose of dexamethasone for tomorrow and advised to followup with PCP on Saturday. Discharged home; discharge instructions including return precautions were reviewed with patient who verbalized understanding. All questions were answered and they are in full agreement with the plan. Medical Records Medical records reviewed: Yes I reviewed the patient's medical records. Medical records narrative: ED note visit 12/10/22 Lab Data Labs: 12/21/22 20:40 Tonsil - Not Specified Group A Streptococcus Culture - Pending Laboratory Tests Range/Units 12/21/22 12/21/22 12/21/22 20:16 20:16 20:16 WBC (4.4-10.8) 10^3/uL 21.57 H RBC (3.93-5.22) 10^6/uL 4.05 Hgb (11.2-15.7) g/dL 12.9 Hct (36.0-46.0) % 37.2 MCV (80-95) fL 92 MCH (27.0-33.0) pg 31.9 MCHC (32.0-36.0) % 34.7 RDW (11.7-14.6) % 11.2 L Plt Count (130-400) 10^3/uL 327 MPV (8.0-11.0) fL 9.7 Immature Gran % 0.6 Neutrophils % 80.1 Lymphocytes % 13.4 Monocytes % 4.5 Eosinophils % 1.1 Basophils % 0.3 Nucleated RBC % (0.0-0.3) % 0.0 Absolute Neutrophils (1.2-6.7) 10^3/uL 17.28 H Absolute Lymphocytes (1.2-3.4) 10^3/uL 2.89 Absolute Monocytes (0.1-0.8) 10^3/uL 0.97 H Absolute Eosinophils (0.0-0.7) 10^3/uL 0.24 Absolute Basophils (0.0-0.2) 10^3/uL 0.06 Sodium (136-145) mmol/L 139 Potassium (3.5-5.1) mmol/L 3.7 Chloride (98-107) mmol/L 105 Carbon Dioxide (21.0-32.0) mmol/L 25.4 Anion Gap (3-11) mmol/L 8.6 BUN (7-18) mg/dL 11 Creatinine (0.55-1.02) mg/dL 0.7 Est GFR (CKD-EPI 2020) (mL/min/1.73m2) 120.74 Glucose (74-106) mg/dL 115 H Calcium (8.5-10.1) mg/dL 8.7 Total Bilirubin (0.2-1.0) mg/dL 0.3 AST (15-37) U/L 16 ALT (14-59) U/L 34 Alkaline Phosphatase (46-116) U/L 84 Total Protein (6.4-8.2) g/dL 7.6 Albumin (3.4-5.0) g/dL 3.8 Monoscreen (Negative) Negative HPI General Date/Time Provider Initiated Documentation: 12/21/22 19:37 . Limitations to Documentation: no limitations . Information obtained by: patient . HPI Narrative: 26yo F with hidranitis suppurativa on spironloactone, no immunosuppresive medications, presenting for fever and sore throat. Seen in this ED last week fo r the same and treated with course of amoxicillin without resolution of symptoms. Fever has decreased (around 103F last week, now more like 100F), throat pain has persisted and worsened. Difficultly swallowing solids. Pain with swallowing liquids but is able to; decreased PO 2/t to this. She reports assoicated chills, no rigors. No rash, chest pain, shortness of breath, nausea, vomiting, abdominal pain, dysuria, hematuria, flank pain, or other concerns. She is otherwise in her usual state of health. Related Data Home Medications Medication Instructions Recorded Confirmed acetaminophen 325 mg tablet 325 mg PO PRN PRN 02/06/17 12/10/22 (Tylenol) levonorgestrel 17.5 mcg/24 hrs 1 device intrauterine ONCE 06/15/20 12/21/22 (5yrs) 19.5mg intrauterine device (Kyleena) clotrimazole 1 % topical cream 1 applic topical BID #15 grams 06/04/22 12/10/22 mupirocin 2 % topical ointment 1 applic topical TID #15 grams 06/04/22 12/10/22 albuterol sulfate 90 mcg/actuation 2 puff inhalation PRN PRN 12/10/22 12/21/22 aerosol inhaler (Ventolin HFA) amoxicillin 875 mg-potassium 1 tab PO BID #14 tabs 12/10/22 clavulanate 125 mg tablet spironolactone 50 mg tablet 50 mg PO DAILY 12/10/22 12/21/22 albuterol sulfate 90 mcg/actuation inhalation 12/21/22 12/21/22 aerosol inhaler (Ventolin HFA) Previous Rx's Medication Instructions Recorded clotrimazole 1 % topical cream 1 applic topical BID #15 grams 06/04/22 mupirocin 2 % topical ointment 1 applic topical TID #15 grams 06/04/22 amoxicillin 875 mg-potassium 1 tab PO BID #14 tabs 12/10/22 clavulanate 125 mg tablet Allergies Allergy/AdvReac Type Severity Reaction Status Date / Time shell fish Allergy Intermediate Hives Uncoded 12/21/22 20:05 General Stated Complaint: Fever BRIAN: 3 Review of Systems Narrative: see HPI PFSH All Active Problems (Updated 12/21/22 @ 22:32 by Cat May MD) Pharyngitis (Acute) Laceration of left index finger (Acute) Vaginal discharge (Acute) Presence of IUD (Acute) Encounter for insertion of intrauterine contraceptive device (IUD) (Acute) care and examination (Acute) Spontaneous rupture of amniotic membranes (Acute) Post-dates (Acute) , delivered (Acute) Nausea and vomiting (Acute) Encounter for visit (Acute) Contact dermatitis (Acute) Chronic GERD (Acute) Anxiety (Chronic) Medical History Asthma History of fracture of leg age 2 Oral contraception initial prescription 22 yo G1 8.0 week by LMP and 8.0 week US SHADIA 02/13/19 vitamins schedule initial OB visit Recent childbirth Family History Mother Hypertension tx w/ meds Diabetes type 2 Father Asthma Hyperlipidemia Maternal Aunt Breast cancer Paternal Aunt Breast cancer Social History Smoking/Tobacco Use Status: Never Smoking risk assessment performed?: Yes Alcohol Intake: former Drug use: Never Substance use type: does not use Housing: house Do you feel safe at home: Yes Do you feel safe in your relationship?: Yes Female Reproductive History Menstrual Age of Menarche: 12 Duration of menses: 3-5 days control method: patch (unplanned 2` to unable to refill patch. al) History History 3 Para 2 Hx # Term Pregnancies 2 Multiple births 0 Hx # Pregnancies 0 Ectopic pregnancies 0 AB induced 0 Hx Number of Living Children 2 AB spontaneous 0 Past Pregnancies Del. Date GA/Weeks # Preg Succ Route Wgt Sex Labor Lgth Anesth esia Location Prov Complic 02/19/19 41 No vaginal 3855.535 g Female [facility] Wero Mcdaniels CNM 05/07/20 40 No vaginal 3543.69 g Female 2hrs 46 min Angie Delivery Date: 02/19/19 Last Updated by: Erika Meng CNM Induced for Prolonged ROM, postdates. 1st degree vaginal laceration, repaired. 'Kenyatta Exam Narrative Exam Narrative: General: Alert, well appearing, well nourished, in no acute distress. Head: Normocephalic, atraumatic Neck: Trachea midline, Neck supple. No cervical lymphadenopathy. ENT: TM's clear. No mastoid tenderness. MMM. Posterior oropharynx injected, no lesions or exudate. Uvula midline. No tonsillar/peritonsillar abscess. Anterior neck nontender. Cardiac: Tachycardiac, regular, no murmurs appreciated Resp: No respiratory distress. CTAB. Abd: Soft, non-distended, nontender : No suprapubic tenderness. No CVA tenderness. Extremities: No deformities. No peripheral edema. Neurologic: GCS 15. Moves all extremities freely against gravity Course Vital Signs Vital signs: Vital Signs Pulse Oximetry 99 12/21/22 19:47 Temperature 38.1 C H 12/21/22 19:48 Temperature Source Oral 12/21/22 19:48 Pulse 112 H 12/21/22 19:48 Respiratory Rate 20 12/21/22 19:48 Respiratory Effort Normal 12/21/22 19:54 Blood Pressure 122/75 12/21/22 19:48 Blood Pressure Mean 87 12/21/22 19:48 Blood Pressure Position Supine 12/21/22 19:48 Pulse Oximetry 99 12/21/22 19:50 Oxygen Delivery Method Room Air 12/21/22 19:48 Oxygen Flow Rate 0 12/21/22 19:48 Pain Level 6 12/21/22 19:48
[2022-12-21] MEDS: Ibuprofen 400 MG TAB PO (20:22)
[2022-12-21] MEDS: Acetaminophen 325 MG TAB 650 MG PO (20:22)
[2022-12-21] MEDS: Dexamethasone 4 MG TAB PO ×2 (20:22→22:32)
[2022-12-21 20:24] LABS: Abs Immature Grans 0.12 10^3/uL (0.0-0.06); Absolute Eosinophil Count 0.24 10^3/uL (0.0-0.7); Absolute Lymphocyte Count 2.89 10^3/uL (1.2-3.4); Basophils % 0.3; Eosinophils % 1.1; HCT 37.2 % (36.0-46.0); HGB 12.9 g/dL (11.2-15.7); Immature Grans % 0.6; Lymphocytes % 13.4; MCH 31.9 pg (27.0-33.0); MCHC 34.7 % (32.0-36.0); MCV 92 fL (80-95); MPV 9.7 fL (8.0-11.0); Monocytes % 4.5; Neutrophils % 80.1; Platelet Count 327 10^3/uL (130-400); RBC 4.05 10^6/uL (3.93-5.22); RDW 11.2 % (11.7-14.6); RDW-SD 38.2 fL; WBC 21.57 10^3/uL (4.4-10.8)
[2022-12-21 20:25] LABS: Absolute Basophil Count 0.06 10^3/uL (0.0-0.2); Absolute Monocyte Count 0.97 10^3/uL (0.1-0.8); Absolute Neutrophil Count 17.28 10^3/uL (1.2-6.7)
[2022-12-21 20:33] LABS: Mono Screening Negative (Negative)
[2022-12-21] MEDS: Normal Saline 1,000 ML 1000 ML IV ×2 (20:39→21:42)
[2022-12-21 20:40] LABS: ALT 34 U/L (14-59); AST 16 U/L (15-37); Albumin 3.8 g/dL (3.4-5.0); Alkaline Phosphatase 84 U/L (46-116); Anion Gap 8.6 mmol/L (3-11); BUN 11 mg/dL (7-18); Bilirubin, Total 0.3 mg/dL (0.2-1.0); CO2 25.4 mmol/L (21.0-32.0); CREATININE 0.7 mg/dL (0.55-1.02); Calcium 8.7 mg/dL (8.5-10.1); Chloride 105 mmol/L (98-107); Estimated GFR 120.74 (mL/min/1.73m2); Glucose 115 mg/dL (74-106); Potassium 3.7 mmol/L (3.5-5.1); Sodium 139 mmol/L (136-145); Total Protein 7.6 g/dL (6.4-8.2)
== END 2022-12-21 22:48 | disposition home or self-care (01) ==
PROVIDERS: Emergency Provider Student in an Organized Health Care Education/Training Program; PCP Family Medicine
DX: R05.9 Cough, unspecified (principal); H92.03 Otalgia, bilateral; J02.9 Acute pharyngitis, unspecified; L73.2 Hidradenitis suppurativa
CPT/HCPCS: 80053; 96360; 96361; 99283; 85025; 86308; 87081; 99282; J8540

== ENCOUNTER 2022-12-26 17:35 | Outpatient (REF) | payer MEDICAID, SELFPAY ==
[2022-12-26 19:44] LABS: Anion Gap 9.4 mmol/L (3-11); BUN 14 mg/dL (7-18); CO2 28.6 mmol/L (21.0-32.0); CREATININE 0.8 mg/dL (0.55-1.02); Calcium 9.5 mg/dL (8.5-10.1); Chloride 105 mmol/L (98-107); Estimated GFR 102.22 (mL/min/1.73m2); Glucose 107 mg/dL (74-106); Potassium 3.9 mmol/L (3.5-5.1); Sodium 143 mmol/L (136-145)
== END 2022-12-26 17:36 | disposition home or self-care (01) ==
LOC: NCHCN 17:35
PROVIDERS: PCP Family Medicine; Visit Provider Family Medicine
DX: Z51.81 Encounter for therapeutic drug level monitoring (principal); L73.2 Hidradenitis suppurativa
CPT/HCPCS: 80048

== ENCOUNTER 2023-03-06 16:27 | Outpatient (REF) | payer MEDICAID, SELFPAY ==
[2023-03-06 19:42] LABS: Potassium 3.7 mmol/L (3.5-5.1)
== END 2023-03-06 16:28 | disposition home or self-care (01) ==
LOC: NCHCN 16:27
PROVIDERS: PCP Family Medicine; Visit Provider Family Medicine
DX: Z51.81 Encounter for therapeutic drug level monitoring (principal)
CPT/HCPCS: 84132

== ENCOUNTER 2023-07-18 17:39 | Outpatient (REF) | payer MEDICAID, SELFPAY ==
[2023-07-18 19:30] LABS: Anion Gap 10.7 mmol/L (3-11); BUN 12 mg/dL (7-18); CO2 28.3 mmol/L (21.0-32.0); CREATININE 0.6 mg/dL (0.55-1.02); Calcium 8.8 mg/dL (8.5-10.1); Chloride 105 mmol/L (98-107); Estimated GFR 124.53 (mL/min/1.73m2); Glucose 95 mg/dL (74-106); Potassium 3.8 mmol/L (3.5-5.1); Sodium 144 mmol/L (136-145)
== END 2023-07-18 17:40 | disposition home or self-care (01) ==
LOC: NCHCN 17:39
PROVIDERS: PCP Family Medicine; Visit Provider Family Medicine
DX: Z51.81 Encounter for therapeutic drug level monitoring (principal); Z00.00 Encounter for general adult medical examination without abnormal findings
CPT/HCPCS: 80048

== ENCOUNTER 2023-10-24 08:53 | Outpatient (REF) | payer MEDICAID, SELFPAY ==
[2023-10-24 15:53] LABS: HCT 40.3 % (36.0-46.0); HGB 13.7 g/dL (11.2-15.7); MCH 32.1 pg (27.0-33.0); MCV 94 fL (80-95); MPV 10.3 fL (8.0-11.0); Platelet Count 364 10^3/uL (130-400); RBC 4.27 10^6/uL (3.93-5.22); RDW 11.5 % (11.7-14.6); RDW-SD 39.4 fL; WBC 10.46 10^3/uL (4.4-10.8)
[2023-10-24 16:33] LABS: Hemoglobin A1C 5.3 % (<5.7)
[2023-10-24 16:57] LABS: ALT 44 U/L (14-59); AST 27 U/L (15-37); Alkaline Phosphatase 72 U/L (46-116); Anion Gap 9.4 mmol/L (3-11); BUN 8 mg/dL (7-18); Bilirubin, Total 0.4 mg/dL (0.2-1.0); CO2 24.6 mmol/L (21.0-32.0); CREATININE 0.6 mg/dL (0.55-1.02); Calcium 8.5 mg/dL (8.5-10.1); Chloride 104 mmol/L (98-107); Estimated GFR 124.53 (mL/min/1.73m2); FREE T4 0.86 ng/dL (0.76-1.46); Glucose 100 mg/dL (74-106); Magnesium 1.9 mg/dL (1.8-2.4); Sodium 138 mmol/L (136-145); TSH 2.07 uIU/Ml (0.36-3.74); Total Protein 7.1 g/dL (6.4-8.2)
== END 2023-10-24 08:54 | disposition home or self-care (01) ==
LOC: NCHCN 08:53
PROVIDERS: PCP Family Medicine; Visit Provider Nurse Practitioner Family
DX: R42 Dizziness and giddiness (principal); Z68.35 Body mass index [BMI] 35.0-35.9, adult
CPT/HCPCS: 80053; 85027; 83036; 83735; 84439; 84443

== ENCOUNTER 2025-03-02 17:38 | Outpatient (REF) | payer MEDICAID, SELFPAY ==
[2025-03-02 20:07] LABS: ALT 37 U/L (14-59); AST 26 U/L (15-37); Albumin 4.1 g/dL (3.4-5.0); Alkaline Phosphatase 72 U/L (46-116); Anion Gap 8.0 mmol/L (3-11); BUN 11 mg/dL (7-18); Bilirubin, Total 0.2 mg/dL (0.2-1.0); CO2 27.0 mmol/L (21.0-32.0); Calcium 8.8 mg/dL (8.5-10.1); Chloride 106 mmol/L (98-107); Estimated GFR 122.99 (mL/min/1.73m2); Glucose 85 mg/dL (74-106); Potassium 4.0 mmol/L (3.5-5.1); Sodium 141 mmol/L (136-145); Total Protein 7.0 g/dL (6.4-8.2)
[2025-03-02 20:39] LABS: Hemoglobin A1C 5.2 % (<5.7)
== END 2025-03-02 17:39 | disposition home or self-care (01) ==
LOC: NCHCN 17:38
PROVIDERS: PCP Nurse Practitioner Family; Visit Provider Nurse Practitioner Family
DX: L73.2 Hidradenitis suppurativa (principal); L72.9 Follicular cyst of the skin and subcutaneous tissue, unspecified; L08.9 Local infection of the skin and subcutaneous tissue, unspecified
CPT/HCPCS: 80053; 83036

== ENCOUNTER 2025-05-14 17:52 | Emergency (ER) | payer MEDICAID, SELFPAY ==
[2025-05-14 17:55] VITALS: BP 135/95; PULSE 75; RESP 20; TEMP 36.7; O2SAT 99
[2025-05-14 18:06] VITALS: BP 135/95; PULSE 75; RESP 20; TEMP 36.7; O2SAT 99
[2025-05-14] MEDS: Acetaminophen 500 MG TAB 1000 MG PO (18:57)
[2025-05-14] MEDS: Ibuprofen 800 MG TAB PO (18:57)
--- NOTE | 2025-05-14 18:59 | ED.GENADUL_ITS ---
Discharge Plan Disposition Patient Disposition: Home Discharge Details Clinical Impression: Axillary hidradenitis suppurativa Primary Care Provider: [facility] Provider: Quang Conway Home Meds and New Rx's Prescriptions: No Action clotrimazole 1 % cream 1 applic topical BID Qty: 15 0RF Kyleena 17.5 mcg/24 hrs (5 yrs) 19.5 mg intrauterine device 1 device intrauterine ONCE Rx Instructions: as a single dose spironolactone 100 mg tablet 100 mg PO DAILY Patient Comments: TAKE 1 TABLET BY MOUTH EVERY DAY montelukast 10 mg tablet 10 mg PO DAILY Patient Comments: TAKE 1 TABLET BY MOUTH EVERY DAY DIRECTED FOR SEASONAL ALLERGIES cetirizine 10 mg tablet 5 mg PO DAILY PRN Patient Comments: TAKE 1 TABLET BY MOUTH EVERY DAY DIRECTED FOR SEASONAL ALLERGIES valacyclovir 1 gram tablet 500 mg PO DAILY PRN Patient Comments: TAKE 2 TABLETS BY MOUTH EVERY 12 HOURS FOR 1 DAY mupirocin 2 % ointment 1 applic topical TID Qty: 15 0RF doxycycline hyclate 100 mg capsule 100 mg PO BID Qty: 14 0RF Rx Instructions: Avoid sun exposure. Take with meal. Take 1 pill every 12 hours x 7 days mupirocin 2 % ointment 1 applic topical TID Qty: 15 0RF albuterol sulfate [Ventolin HFA] 90 mcg/actuation HFA aerosol inhaler 2 puff INHALATION PRN PRN Patient Comments: INHALE 1 TO 2 PUFFS BY MOUTH EVERY 4 TO 6 HOURS NEEDED acetaminophen [Tylenol] 325 MG tablet 325 mg PO PRN PRN Discharge Instructions Instructions: Hidradenitis suppurativa Additional Instructions: As discussed, we will call the general surgery clinic on Saturday to see if they can see you earlier than your previously scheduled outpatient appointment. If you develop unbearable pain, or secondary signs of infection including worsening rash, fever, chills, vomiting, please return to the emergency department for further management. Please continue to take your previously prescribed doxycycline Stand Alone Forms: Portal Information Discharge Data Discharge Date/Time-TO BE ENTERED AT DEPARTURE: 05/14/25 19:03 HPI General Date/Time Provider Initiated Documentation: 05/14/25 18:09 . HPI Narrative: MDM/Narrative: 29-year-old female past medical history of hidradenitis suppurativa, presents for evaluation of tender, fluctuant left axillary max which has been present for quite some time but symptoms began worsening yesterday. Denies associated fever or chills. Exam notable for fluctuant mass, with evidence of surrounding cellulitis. Plan of care was discussed with the patient she was advised that incision and drainage in the setting of hidradenitis suppurativa should be avoided however given she is so symptomatic with an outpatient follow-up which is scheduled for 8 days from today with general surgery, I offered to steven the area of fluctuance to hopefully improve her symptoms to allow for outpatient follow-up. She understands the risk versus benefits of the procedure, and was in agreement. Following lancing of the mass, significant amount of purulent material was drained via a small incision less than 1 cm wide to reduce local tissue damage inflammation and worsen the disease process. She was instructed to keep an eye on the area should it show signs of worsening infection return to the emergency department or she develops recurrent abscess and uncontrollable pain to also return to the emergency department. Disposition: Home HPI: 29-year-old female past medical history of hidradenitis suppurativa, presents for evaluation of tender, fluctuant left axillary max which has been present for quite some time but symptoms began worsening yesterday. Patient states that she was seen at [facility] and started on doxycycline without improvement of her symptoms. She notes that she does have a follow-up appointment general surgery in 8 days however the pain is too severe and she cannot wait for her appointment prompting her evaluation tonight. Denies associated vomiting, fever, or any other concerning symptoms. ROS: Negative besides as mentioned above Exam: Gen: A&O NAD HEENT: NCAT, EOMI, not icteric. External ears normal. No rhinorrhea. Moist mucous membranes. Neck: Supple, full range of motion, no observable masses, No meningeal sign. Lungs: No Respiratory distress. CV: RRR, no edema. Abdomen: Soft, nondistended, No rebound tenderness. MSK: No joint swelling, no redness. Skin: There is a fluctuant ovoid mass, approximately 3 cm in longest diameter in the left axilla which is exquisitely tender with overlying erythema and induration. There are also chronic skin findings consistent with hidradenitis suppurativa Neuro: Normal Gait, Grossly intact. Psych: Appropriate for situation. Related Data Home Medications ?Medication ?Instructions ?Recorded ?Confirmed acetaminophen 325 mg tablet 325 mg PO PRN PRN 02/06/17 05/14/25 (Tylenol) levonorgestrel 17.5 mcg/24 hr (up 1 device intrauterin e ONCE 06/15/20 05/14/25 to 5 yrs) 19.5mg intrauterine device (Kyleena) clotrimazole 1 % topical cream 1 applic topical BID #1 5 grams 06/04/22 05/14/25 albuterol sulfate 90 mcg/actuation 2 puff inhalation P RN PRN 12/10/22 05/14/25 aerosol inhaler (Ventolin HFA) cetirizine 10 mg tablet 5 mg PO DAILY PRN 06/27/24 1 07/15/24 montelukast 10 mg tablet 10 mg PO DAILY 06/27/2405/03 mupirocin 2 % topical ointment 1 applic topical TID #1 5 grams 06/27/24 05/14/25 spironolactone 100 mg tablet 100 mg PO DAILY 06/27/24 05/14/25 valacyclovir 1 gram tablet 500 mg PO DAILY PRN 06/27/2 5 05/14/25 doxycycline hyclate 100 mg capsule 100 mg PO BID #14 c aps 05/12/25 05/14/25 mupirocin 2 % topical ointment 1 applic topical TID #1 5 grams 05/12/25 05/14/25 Previous Rx's ?Medication ?Instructions ?Recorded clotrimazole 1 % topical cream 1 applic topical BID #1 5 grams 06/04/22 mupirocin 2 % topical ointment 1 applic topical TID #1 5 grams 06/27/24 doxycycline hyclate 100 mg capsule 100 mg PO BID #14 c aps 05/12/25 mupirocin 2 % topical ointment 1 applic topical TID #1 5 grams 05/12/25 Allergies Allergy/AdvReac Type Severity Reaction Status Date / Time shell fish Allergy Intermediate Hives Uncoded 05/14/25 17:58 General Stated Complaint: Cellulitis BRIAN: 4 Course Vital Signs Vital signs: Vital Signs Temperature 36.7 C 05/14/25 17:55 Pulse 75 05/14/25 17:55 Respiratory Rate 20 05/14/25 17:55 Blood Pressure 135/95 H 05/14/25 17:55 Pulse Oximetry 99 05/14/25 17:55 Temperature 36.7 C 05/14/25 18:06 Temperature Source Oral 05/14/25 18:06 Pulse 75 05/14/25 18:06 Respiratory Rate 20 05/14/25 18:06 Blood Pressure 135/95 H 05/14/25 18:06 Pulse Oximetry 99 05/14/25 18:06 Oxygen Delivery Method Room Air 05/14/25 18:06 Oxygen Flow Rate 0 05/14/25 18:06 Pain Level 6 05/14/25 18:57 Procedure Abscess Drainage Date of Procedure: 05/14/25 Time of Procedure: 18:30 Provider that performed the procedure: Quang Conway Standard Time Out Performed: Yes Patient Consented: Verbally Location of Exam: Axilla/left side Ultrasound: Used/Image Saved Complications: None Procedure Description Note: Area of maximal fluctuance was viewed with ultrasound to determine large fluid collection. The area was sterilized with an alcohol pad. Approximately 4 mL of 1% lidocaine with epinephrine was used anesthetize the area and a field block method. An 11 blade scalpel was then used to create a approximately 0.5 cm incision over the area of most fluctuance, with expression of copious purulent material. Given the setting of hidradenitis suppurativa, the wound was not explored for loculations, or extended. Patient tolerated the procedure without complication. PFSH All Active Problems (Updated 05/14/25 @ 19:02 by Quang Conway MD) Axillary hidradenitis suppurativa (Acute) Laceration of left index finger (Acute) Nausea and vomiting (Acute) Contact dermatitis (Acute) Chronic GERD (Acute) Anxiety (Chronic) Medical History FH: breast cancer in first degree relative Presence of IUD (~06/2020) Kyleena History of fracture of leg age 2 Asthma Family History Mother Hypertension tx w/ meds Diabetes type 2 Breast cancer -BRCA Father Asthma Hyperlipidemia Maternal Aunt Breast cancer Paternal Aunt Breast cancer Social History Smoking/Tobacco Use Status: Never Smoking risk assessment performed?: Yes Alcohol Intake: former Drug use: Never Substance use type: does not use Housing: house Do you feel safe at home: Yes Do you feel safe in your relationship?: Yes Female Reproductive History Menstrual Age of Menarche: 12 Duration of menses: 3-5 days control method: progestin IUCD (kyleena) History History 3 Para 2 Hx # Term Pregnancies 2 Multiple births 0 Hx # Pregnancies 0 Ectopic pregnancies 0 AB induced 0 Hx Number of Living Children 2 AB spontaneous 0 Past Pregnancies Del. Date GA/Weeks # Preg Succ Route Wgt Sex Labor Lgth Anesth esia Location Prov Complic 02/19/19 41 No vaginal 3855.535 g Female [facility] Wero Mcdaniels CNM 05/07/20 40 No vaginal 3543.69 g Female 2hrs 46 min Angie Delivery Date: 02/19/19 Last Updated by: Erika Meng CNM Induced for Prolonged ROM, postdates. 1st degree vaginal laceration, repaired. 'Kenyatta POCUS Exam (ED) Limited Soft Tissue Exam DATE OF EXAM: 05/14/25 TIME OF EXAM: 18:30 PROVIDER THAT PERFORMED THE STUDY: Quang Conway IS THIS A REPEAT EXAM DURING THIS ENCOUNTER: No LOCATION OF EXAM: Axilla/left side REASON FOR EXAM: Abscess, Pain, Redness and Swelling Exam Complete DIFFERENTIAL DIAGNOSES: Abscess versus infected cyst
== END 2025-05-14 19:03 | disposition home or self-care (01) ==
PROVIDERS: Emergency Provider General Practice; PCP Nurse Practitioner Family
DX: L73.2 Hidradenitis suppurativa (principal)
CPT/HCPCS: 10060; 76882; 76942